=== PATIENT | female | born 1985 | race Caucasian/White ===

== ENCOUNTER 2020-09-29 19:57 | Emergency (ER) | payer BC, SELFPAY ==
--- NOTE | 2020-09-29 20:05 | ED.URI ---
HPI - URI/Sore Throat General Chief Complaint: Upper Respiratory Infection Stated Complaint: upper respiratory infection History of Present Illness HPI Narrative: The patient, previously mostly healthy non-smoker/nondrinker, presents with sore throat. Patient states she has about half week history of sore throat, low-grade temperature of 100, myalgias and scant nonproductive cough.. Symptoms are mild, worse upon swallowing, she took a home Covid antigen test which was negative, and she is a vaccinated nurse. No fever, hoarseness, trismus, loss of taste/smell, chest pain, S OB, earache, rash Related Data Home Medications Medication Instructions Recorded Confirmed meloxicam 15 mg PO BID 09/29/20 09/29/20 Allergies Allergy/AdvReac Type Severity Reaction Status Date / Time butorphanol Allergy Unknown Other Verified 09/29/20 20:08 Review of Systems Review of Systems: Narrative: General/Constitutional: No weight loss, REPORTS possible fever Eyes: N0: Redness,discharge Ears/Nose/Throat: No: Epistaxis,ear discharge Respiratory: Denies: Hemoptysis Gastrointestinal: No Vomiting, Bleeding-rectal Skin: No Lumps, eruption Neurologic: No Focal Weakness,Sz Hematologic: Denies: Petechiae/Purpura Psychiatric: No: Suicida ideationl All Other Systems: Reviewed and Negative PMFSH Social History Social History Gender identity (if verbalized by the patient): Female Comments At time of signature, agree with nursing past medical, surgical, social and family history. There is no relevant family history pertinent to the presenting complaint Exam Narrative: Exam Narrative: General Appearance: Well appearing, Well nourished, Conjunctiva clear Ears: Auditory canal normal, TM normal Nose: Rhinorrhea, Mucousal erythema Mouth/Throat: MM moist, Uvula midline, Pharyngeal erythema without exudate Supple, No adenopathy Respiratory: No respiratory distress, Breath sounds equal, Clear to auscultation Cardiovascular: RRR, No JVD Musculoskeletal: Non tender, Normal strength, Warm, Dry Course Vital Signs Vital signs: Vital Signs Temperature 97.5 F L 09/29/20 20:08 Pulse Rate 81 09/29/20 20:08 Respiratory Rate 18 09/29/20 20:08 Blood Pressure 135/81 09/29/20 20:08 Pulse Oximetry 100 09/29/20 20:08 Temperature 97.5 F L 09/29/20 20:10 Pulse Rate 81 09/29/20 20:10 Respiratory Rate 18 09/29/20 20:10 Blood Pressure 135/81 09/29/20 20:10 Pulse Oximetry 100 09/29/20 20:10 Discharge Plan Discharge Clinical Impression: Pharyngitis Patient Disposition: Home, Self-Care Condition: Stable Instructions: Antibiotic Form, Pharyngitis (ED) Prescriptions: New lidocaine HCl [Lidocaine Viscous] 2 % solution 5 ml MUCOUS MEM QID PRN (Reason: pain) Qty: 100 RF: 2 cefuroxime axetil 500 mg tablet 500 mg PO Q12H Qty: 14 RF: 0 No Action meloxicam 15 mg tablet 15 mg PO BID RF: 0 Follow-up/Referrals: Murtaza,Kristy Boles MD [Primary Care Provider] -
[2020-09-29 20:08] VITALS: BP 135/81; PULSE 81; RESP 18; TEMP 36.4; O2SAT 100
[2020-09-29 20:10] VITALS: BP 135/81; PULSE 81; RESP 18; TEMP 36.4; O2SAT 100
== END 2020-09-29 20:20 | disposition home or self-care (01) ==
PROVIDERS: Emergency Provider Emergency Medicine; PCP Family Medicine
DX: J02.9 Acute pharyngitis, unspecified (principal); K76.0 Fatty (change of) liver, not elsewhere classified
CPT/HCPCS: 87081; 87880; 99213; G0463

== ENCOUNTER 2021-02-01 11:13 | Emergency (ER) | payer BC, SELFPAY ==
[2021-02-01 11:24] VITALS: BP 124/74; PULSE 75; RESP 18; TEMP 36.7; O2SAT 100
--- NOTE | 2021-02-01 11:30 | ED.SKABFB ---
HPI - Skin/Abscess/Foreign Bdy General Chief complaint: Skin/Abscess/Foreign Body Stated complaint: Insect Bite Neck Time Seen by Provider: 02/01/21 11:28 Source: patient and RN notes reviewed Mode of arrival: ambulatory Limitations: no limitations History of Present Illness HPI narrative: 35-year-old female presents concern for rash. Reports on she was bit by an insect on her chest. Reports since then the rash area has gotten larger, itchier and is spreading Down her chest. She also reports today she started having generalized internal itching. She reports she is taken Zyrtec with no relief. Denies swollen lips, swollen tongue, trouble breathing. Denies nausea, vomiting, diarrhea. MD complaint: rash Related Data Home Medications Medication Instructions Recorded Confirmed propranolol 10 mg PO DAILY PRN 02/01/21 02/01/21 Allergies Allergy/AdvReac Type Severity Reaction Status Date / Time butorphanol Allergy Unknown Other Verified 02/01/21 11:29 Review of Systems Review of Systems: CONSTITUTIONAL: Denies malaise, chills, sweats, or fever. ENT: Denies polyps, swollen tongue CARDIOVASCULAR: Denies chest pain, palpitations, or edema. RESPIRATORY: Denies cough or dyspnea. SKIN: Reports itchy rash to the chest, reports generalized itching All systems reviewed & are unremarkable except as noted in HPI and below PMFSH Social History Social History Gender identity (if verbalized by the patient): Female Comments At time of signature, agree with nursing past medical, surgical, social and family history. There is no relevant family history pertinent to the presenting complaint Exam Narrative: GENERAL: Well-appearing, well-nourished, and in no acute distress. HEAD: Normocephalic, atraumatic. EYES: PERRLA, conjunctivae clear ENT: Mucous membranes moist. NECK: Supple. No lymphadenopathy CHEST: Clear to auscultation. No respiratory distress. HEART: Regular rate and rhythm. SKIN: Warm, dry. 2 cm x 4 cm papular rash noted to the chest with central scab, small trailing rash noted NEURO: Alert and oriented x3. PSYCH: Normal mood and affect Course Course Emergency Course: Patient is aware of diagnosis, understands and agrees to treatment plan. Anticipatory guidance given. Patient agrees to follow-up as directed and is aware of reasons to seek care at the emergency department. Portions of this record may have been created with voice recognition software Vital Signs Vital signs: Vital Signs Temperature 98.1 F 02/01/21 11:24 Pulse Rate 75 02/01/21 11:24 Respiratory Rate 18 02/01/21 11:24 Blood Pressure 124/74 02/01/21 11:24 Pulse Oximetry 100 02/01/21 11:24 Temperature 98.1 F 02/01/21 11:24 Pulse Rate 75 02/01/21 11:24 Respiratory Rate 18 02/01/21 11:24 Blood Pressure 124/74 02/01/21 11:24 Pulse Oximetry 100 02/01/21 11:24 Reviewed. MDM - Skin/Abscess/Foreign Bdy MDM Narrative Medical decision making narrative: Does not appear at this time to be erythema multiforme, bullous, SJS, TEN; no evidence at this time to suggest RMSF, endocarditis or Lyme disease; patient looks well, nontoxic and is tolerating oral intake; no neurologic signs or symptoms; no headache, photophobia or neck pain; afebrile; appropriate for initial outpatient treatment; discussed the importance of follow-up, patient agrees; question, viral exanthema, contact dermatitis, allergic dermatitis, eczema, urticaria bite, cellulitis, shingles. No soft palate or uvula edema, no tongue, lip edema or other mucosal involvement, no respiratory compromise, no stridor, no wheezing, no wheezing, no history of syncope, no hypotension, no nausea, vomiting, or diarrhea. Instructed patient to go to nearest ER immediately for any worsening symptoms including but not limited to: fever, spreading rash, pain, sore throat, headache, dizziness, chest pain, trouble breathing, or any symptoms concerning to the patient. Gadiel
== END 2021-02-01 11:42 | disposition home or self-care (01) ==
PROVIDERS: Emergency Provider Nurse Practitioner; PCP Nurse Practitioner Family
DX: R21 Rash and other nonspecific skin eruption (principal); I10 Essential (primary) hypertension; K76.0 Fatty (change of) liver, not elsewhere classified
CPT/HCPCS: 99213; G0463

== ENCOUNTER 2021-03-09 21:38 | Emergency (ER) | payer BC, SELFPAY ==
--- NOTE | ~2021-03-09 | CT_ITS ---
EXAMINATION: CT brain wo con EXAM DATE: 03/09/2021 23:25 INDICATION: Fall. TECHNIQUE: Spiral CT of the head was performed without contrast. Axial, coronal and sagittal images were reviewed. The dose-length product (DLP) for this examination was 605.33 mGy-cm. The exposure w as tailored according to patient size, and iterative reconstruction (ASIR) was used as additional dos e reduction technique. There is no prior study for comparison. FINDINGS: There is no acute intraparenchymal hemorrhage. No evidence of intraparenchymal brain mass lesion. No evidence of acute infarction. There is no mass effect or midline shift. The ventricles are normal in size. There are no extra-axial collections. There are no acute calvarial fractures. T he orbits are unremarkable. Soft tissue is unremarkable. The visualized sinuses and mastoid air jesus ls are well aerated. IMPRESSION: Unremarkable head CT examination. Reviewed, dictated and finalized at location A. TATION OPERATOR
[2021-03-09 22:06] VITALS: BP 137/95; PULSE 74; RESP 16; TEMP 36.5; O2SAT 100
[2021-03-09] MEDS: ONDANSETRON HCL ODT 4 MG TABLET PO (23:27)
--- NOTE | 2021-03-10 00:17 | ED.GENADULT ---
HPI - General Adult General Chief complaint: Wound/Laceration Stated complaint: fall lac to left ear Time Seen by Provider: 03/09/21 22:43 Source: patient Mode of arrival: ambulatory Limitations: no limitations History of Present Illness HPI narrative: 35-year-old with no major medical problems here with complaints of fall in the bathroom. Patient states that she slipped and fell hit her left ear. She now complains of nausea and headache. She denies loss of consciousness. Denies any other injuries. Related Data Home Medications Medication Instructions Recorded Confirmed propranolol 10 mg PO DAILY PRN 02/01/21 02/01/21 Allergies Allergy/AdvReac Type Severity Reaction Status Date / Time butorphanol Allergy Unknown Other Verified 03/09/21 22:20 Review of Systems Review of Systems: All systems reviewed & are unremarkable except as noted in HPI and below Constitutional: Constitutional: Reports no additional constitutional complaints Eyes: Eyes: Reports no additional eye complaints ENT: Reports as per HPI Cardiovascular: Cardiovascular: Reports no additional cardiovascular complaints Respiratory: Respiratory: Reports no additional respiratory complaints Gastrointestinal: Gastrointestinal: Reports no additional gastrointestinal complaints Musculoskeletal: Musculoskeletal: Reports no additional musculoskeletal complaints Integumentary/Breasts: Skin/Breast: Reports system reviewed and no additional complaints, except as docu Neurologic: Reports system reviewed and no additional complaints, except as documented PMFSH Social History Social History Gender identity (if verbalized by the patient): Female Exam Narrative: GENERAL: Well-appearing, well-nourished, and in no acute distress, anxious HEAD: Normocephalic, atraumatic. EYES: PERRLA and EOMI. ENT: Nares clear, no rhinorrhea or epistaxis. Mucous membranes moist. a small stellate lac on the pinna of the left ear. NECK: Supple. CHEST: Clear to auscultation. No respiratory distress. HEART: Regular rate and rhythm. No murmur heard. Normal peripheral pulses. EXTREMITIES: Normal range of motion. No edema. SKIN: Warm, dry, no rash. NEURO: No focal deficits. Alert and oriented x3. PSYCH: Normal mood and affect. Course Course Emergency Course: Patient feeling much better after Zofran. Informed her about her CAT scan. Vital Signs Vital signs: Vital Signs Temperature 36.5 C 03/09/21 22:06 Pulse Rate 74 03/09/21 22:06 Respiratory Rate 16 03/09/21 22:06 Blood Pressure 137/95 H 03/09/21 22:06 Pulse Oximetry 100 03/09/21 22:06 Temperature 36.5 C 03/09/21 22:06 Pulse Rate 74 03/09/21 22:06 Respiratory Rate 16 03/09/21 22:06 Blood Pressure 137/95 H 03/09/21 22:06 Pulse Oximetry 100 03/09/21 22:06 Procedures Laceration Laceration 1: Date: 03/10/21 Time: 00:21 Site: face (Left ear) Side (If applicable): left Description: stellate Depth: simple, single layer Local Anesthetic: none ====== Skin Level ====== Skin layer closed with: dermabond ====== Subcutaneous Layer ====== ====== Muscle Layer ====== ====== Tendon Layer ====== Medical Decision Making Vital Signs Vital Signs: Vital Signs Temperature 36.5 C 03/09/21 22:06 Pulse Rate 74 03/09/21 22:06 Respiratory Rate 16 03/09/21 22:06 Blood Pressure 137/95 H 03/09/21 22:06 Pulse Oximetry 100 03/09/21 22:06 Temperature 36.5 C 03/09/21 22:06 Pulse Rate 74 03/09/21 22:06 Respiratory Rate 16 03/09/21 22:06 Blood Pressure 137/95 H 03/09/21 22:06 Pulse Oximetry 100 03/09/21 22:06 Imaging Data Radiologist's impression: ITS Impressions Head CT 03/09/21 23:40 IMPRESSION: Unremarkable head CT examination. Discharge Plan Discharge Clinical Impression: Minor head injury Qualifiers:
[2021-03-10 00:54] VITALS: BP 127/78; PULSE 81; RESP 16; O2SAT 98
== END 2021-03-10 00:55 | disposition home or self-care (01) ==
PROVIDERS: Emergency Provider Family Medicine; PCP Nurse Practitioner Family
DX: S01.312A Laceration without foreign body of left ear, initial encounter (principal); W01.198A Fall on same level from slipping, tripping and stumbling with subsequent striking against other object, initial encounter
CPT/HCPCS: 12011; 70450; 99283; A9270

== ENCOUNTER → 2021-07-19 15:26 | Outpatient (CLI) | payer BC, SELFPAY ==
--- NOTE | ~2021-07-19 | US_ITS ---
EXAMINATION: US pelvic complete w TV DATE: 07/19/2021 15:56 INDICATION: Right lower quadrant pain TECHNIQUE: Multiple transabdominal and endovaginal sonographic images of the pelvis were obtained. COMPARISON: None. FINDINGS: The uterus measures 8.7 x 3.8 x 5.3 cm. The endometrial complex measures 6 mm. The right ov иван measures 2.8 x 1.9 x 2 cm. The left ovary measures 3.2 x 3.3 x 2.4 cm. There is normal vascular f low in the ovaries. There is no free fluid in the pelvis. IMPRESSION: 1. No sonographic correlate for the patient's symptoms. Reviewed, dictated and finalized at location B.
== END ==
PROVIDERS: Visit Provider Obstetrics & Gynecology
DX: R10.31 Right lower quadrant pain (principal)
CPT/HCPCS: 76830; 76856

== ENCOUNTER → 2021-08-20 08:26 | Outpatient (CLI) | payer BC, SELFPAY ==
--- NOTE | ~2021-08-20 | US_ITS ---
EXAMINATION: US right upper quadrant DATE: 08/20/2021 08:46 INDICATION: Right upper quadrant pain. TECHNIQUE: Multiple grayscale and Doppler ultrasound images of the abdomen were obtained. COMPARISON: 09/20/2017. FINDINGS: Increased echogenicity of the liver, otherwise normal. No surface nodularity. Normal hepato petal flow in the main portal vein. The gallbladder is normal with no abnormal wall thickening, peric holecystic fluid or stones. The normal common bile duct measures 0.3 cm. There was no sonographic Mur phy sign. The visualized portions of the inferior vena cava are normal. IMPRESSION: 1. Echogenic liver, frequently seen with steatosis but can also occur with hepatitis and fibrosis. Reviewed, dictated and finalized at location K. IMPRESSION: 1. Echogenic liver, frequently seen with steatosis but can also occur with hepa titis and fibrosis.
== END ==
PROVIDERS: PCP Nurse Practitioner Family; Visit Provider Nurse Practitioner Family
DX: R10.11 Right upper quadrant pain (principal); K76.0 Fatty (change of) liver, not elsewhere classified
CPT/HCPCS: 76705

== ENCOUNTER 2023-07-16 11:47 | Emergency (ER) | payer BC, SELFPAY ==
--- NOTE | 2023-07-16 11:48 | ED.URI ---
HPI - URI/Sore Throat General Chief Complaint: Upper Respiratory Infection Stated Complaint: Bodyaches,Cough,Earache,Headache,Short of Breath Time Seen by Provider: 07/16/23 11:48 Source: patient Mode of arrival: ambulatory Limitations: no limitations History of Present Illness HPI Narrative: Mirna is a 37-year-old female patient presenting to the clinic today with complaints of body aches, sore throat, cough, headache, earache, and chest congestion. She reports symptoms started last week. She is coughing up some yellow phlegm. Denies any chest pain. Reports that she does have some shortness of breath however her SpO2 is 100% on room air and she is able to speak in full sentences. MD elicited complaint: fever, cough, sore throat, rhinorrhea, nasal congestion and sinus pain Related Data Home Medications Medication Instructions Recorded Confirmed No Home Medications 07/16/23 07/16/23 Allergies Allergy/AdvReac Type Severity Reaction Status Date / Time butorphanol AdvReac Severe Hallucinati Verified 07/16/23 11:56 ng pseudoephedrine AdvReac Intermediate Palpitation Verified 07/16/23 11:56 s Review of Systems Review of Systems: Pertinent positives per HPI. Patient denies any fever, chills, rash, headache, visual changes, dizziness, chest pain, palpitations, nausea, vomiting, diarrhea, constipation, abdominal pain, or any urinary issues. [facility] Past Medical History Medical History Asthma Encounter for IUD insertion 06/22/14 Mirena insertion Encounter for IUD removal 02/09/15 Mirena removal Fatty liver History of frequent headaches Migraines Pain, abdominal, RLQ Screening mammogram for breast cancer (10/01/18) right breast US -recommended us guided bx referred to [facility] Family History Family History Father Hypertension Diabetes mellitus Grandparent Hypertension maternal grandmother Osteoporosis maternal grandmother Heart disease maternal grandmother Mother Hypertension Social History Social History Smoking status: Never smoker Alcohol intake: never Substance use: never Substance use type: does not use Living arrangements: other Additional living arrangements comments: Occupation/Education: occupation Additional occupation/education comments: nurse Gender identity (if verbalized by the patient): Female Sexual Orientation (if Verbalized by the Patient): Straight or Heterosexual Comments At the time of my signature, I reviewed and agree with the nursing past medical, surgical, social, and family history. There is no relevant family history pertinent to the patient complaint. Exam Narrative: General: Well-developed, well nourished, in no apparent distress Head: Normocephalic, atraumatic Eyes: Pupils equally round and reactive to light bilaterally, EOM intact, sclera and conjunctive clear, no discharge, lids normal Ears: TMs intact and clear, ear canals clear, no drainage, grossly hearing normal. Nose: Nares patent, no discharge, no inflammation, no sinus tenderness. Mouth: Oral pharynx without lesions or masses, good dentition, MMM. Neck: Supple, trachea midline, no enlargement of anterior or posterior cervical nodes, no thyroid masses or goiter palpable. Cardio: Regular rate and rhythm, s1 and s2 normal, no murmur appreciated. Resp: Clear to auscultation bilaterally, no rhonchi, rales, wheezing or rubs Course Course Emergency Course: Portions of this record may have been created with voice recognition software. Level of Care: Express Care Visit Vital Signs Vital signs: Vital signs reviewed MDM - URI/Sore Throat MDM Narrative Medical decision making narrative: At the time of visit patient is resting comfortably on the exam table. Patient
[2023-07-16 11:56] VITALS: BP 145/85; PULSE 77; RESP 18; TEMP 36.2; O2SAT 100
== END 2023-07-16 12:22 | disposition home or self-care (01) ==
PROVIDERS: Emergency Provider Nurse Practitioner Family; PCP Nurse Practitioner Family
DX: J06.9 Acute upper respiratory infection, unspecified (principal); J02.9 Acute pharyngitis, unspecified; Z20.822 Contact with and (suspected) exposure to COVID-19; J45.909 Unspecified asthma, uncomplicated; K76.0 Fatty (change of) liver, not elsewhere classified
CPT/HCPCS: 87081; 87426; 87804; 87880; 99213; G0463

== ENCOUNTER 2024-04-22 13:58 | Emergency (ER) | payer BC, SELFPAY ==
[2024-04-22 14:23] VITALS: BP 130/89; PULSE 86; RESP 18; TEMP 36.2; O2SAT 100
[2024-04-22 14:48] LABS: EDUAAPPEAR Clear; EDUABILI Negative (Negative); EDUABLOOD Negative (Negative); EDUACOLOR1 Yellow; EDUAGLUCOSE Negative (Negative); EDUAKETONE Negative (Negative); EDUALEUKO Negative (Negative); EDUANITRATE Negative (Negative); EDUAPH 5.5; EDUAPROTEIN Negative (Negative)
--- NOTE | 2024-04-22 15:19 | ED_ITS ---
HPI - Female Genitourinary General Chief complaint: Urogenital-Female Stated complaint: Possible UTI Time Seen by Provider: 04/22/24 14:35 Source: patient Mode of arrival: ambulatory Limitations: no limitations History of Present Illness HPI Narrative: 38-year-old female presents with complaint of urinary frequency, urgency, dysuria for the past 2-3 days. Reports back is aching. Reports decrease in urine output starting today. Feels like her urethra is spasming . Increased water intake and drinking cranberry juice. Afebrile. Denies nausea vomiting. Reports history of yeast infections and is not having similar symptoms. All systems reviewed and negative except as noted above. Related Data Home Medications ?Medication ?Instructions ?Recorded ?Confirmed ?Last Taken ?Type sertraline 50 mg tablet 50 mg PO DAILY 04/08/24 Unknown History Allergies Allergy/AdvReac Type Severity Reaction Status Date / Time butorphanol AdvReac Severe Hallucinati Verified 04/22/24 14:26 ng pseudoephedrine AdvReac Intermediate Palpitation Verified 04/22/24 14:26 s Review of Systems Review of Systems: CONSTITUTIONAL: Denies fever, chills, or sweats. EYES: Denies visual changes, redness, or discharge. ENT: Denies rhinorrhea, congestion, sore throat, or otalgia. CARDIOVASCULAR: Denies chest pain, palpitations, or edema. RESPIRATORY: Denies cough or dyspnea. GASTROINTESTINAL: Denies abdominal pain, nausea, vomiting, or diarrhea. GENITOURINARY: Reports dysuria, frequency, urgency. Denies hematuria. SKIN: Denies rash or itching. MUSCULOSKELETAL: Denies back pain, joint pain, or myalgia. NEUROLOGIC: Denies headache, numbness, or weakness. PSYCHIATRIC: Denies anxiety or depression. All other systems reviewed are negative, except as documented in HPI. [facility] Past Medical History Medical History (Updated 04/22/24 @ 15:05 by Tasha Sampson NP) Hypersomnia BMI 27.0-27.9,adult Arthralgia of multiple joints Depression Anxiety Swelling, mass, or lump in head and neck Encounter for IUD removal 02/09/15 Mirena removal Encounter for IUD insertion 06/22/14 Mirena insertion Migraines Fatty liver History of frequent headaches Asthma Screening mammogram for breast cancer (10/01/18) right breast US -recommended us guided bx referred to [facility] Pain, abdominal, RLQ Surgical History Surgical History History of liver biopsy (~03/2023) fatty liver disease Family History Family History Father Hypertension Diabetes mellitus Grandparent Hypertension maternal grandmother Osteoporosis maternal grandmother Heart disease maternal grandmother Mother Hypertension Thyroid disease Social History Social History Smoking status: Never smoker Second hand tobacco smoke exposure: No Alcohol intake: current Drinks per week: 1 Substance use: never Substance use type: does not use Do You Feel Safe in your Home?: Yes Lack of Transportation: No Lack of Food: Never True Current Housing: I Have Housing Concerned About Future Housing: No Difficulty Paying Gas/Electric Bills: No Difficulty Paying for Meds: No Currently Unemployed: No Education: Bachelor's Degree Difficulty w/ Childcare or Family Care: No Living arrangements: other Additional living arrangements comments: Occupation/Education: occupation Additional occupation/education comments: nurse Gender identity (if verbalized by the patient): Female Sexual Orientation (if Verbalized by the Patient): Straight or Heterosexual Comments At time of signature, agree with nursing past medical, surgical, social and family history. There is no relevant family history pertinent to the presenting complaint. Exam Narrative: GENERAL: This is a well-nourished, well-developed patient, in no apparent distress. HEAD: normocephalic, atraumatic. EYES: PERRL. Sclera clear/white. Vision is grossly intact. EARS: External ears normal NOSE: External nose normal NECK: Neck supple, non-tender without lymphadenopathy, masses or thyromegaly. CARDIOVASCULAR: Regular rate and rhythm without murmurs, gallops, or rubs. RESPIRATORY: Clear to auscultation. Breath sounds equal bilaterally. No wheezes, rales, or rhonchi. SKIN: warm, Dry, intact with no suspicious lesions or rash, good texture and turgor. NEURO: awake, alert, and oriented to person, place and time. There were no obvious focal neurologic abnormalities. EXTREMITIES: No joint tenderness, effusion, or edema noted. Course Course Level of Care: Express Care Visit Vital Signs Vital signs: Vital Signs Temperature 36.2 C L 04/22/24 14:23 Pulse Rate 86 04/22/24 14:23 Respiratory Rate 18 04/22/24 14:23 Blood Pressure 130/89 04/22/24 14:23 Pulse Oximetry 100 04/22/24 14:23 Oxygen Delivery Room Air 04/22/24 14:23 Temperature 36.2 C L 04/22/24 14:23 Pulse Rate 86 04/22/24 14:23 Respiratory Rate 18 04/22/24 14:23 Blood Pressure 130/89 04/22/24 14:23 Pulse Oximetry 100 04/22/24 14:23 Oxygen Delivery Room Air 04/22/24 14:23 reviewed MDM - Female Genitourinary MDM Narrative Medical decision making narrative: Patient's urinalysis normal. Urine culture ordered due to patient's symptoms were and will prescribe patient antibiotic to treat urinary tract infection due to patient's symptoms. Recommend she follow up her primary care physician if symptoms are not improving. Recommend she go to the ER for any worsening of symptoms. Patient well-appearing, nontoxic. Patient is aware of diagnosis, understands and agrees to treatment plan. Anticipatory guidance given. Patient agrees to follow-up as directed and is aware of reasons to seek care at the emergency department. Portions of this record may have been created with voice recognition software Differential Diagnosis Differential diagnosis: Likely urinary tract infection Lab Data Labs: Lab Results 04/22/24 Range/Units 14:45 POC Urine Color Yellow POC Urine Clarity Clear POC Urine pH 5.5 POC Ur Specif [place] 1.020 POC Urine Protein Negative (Negative) POC Ur Glucose (UA) Negative (Negative) POC Urine Ketones Negative (Negative) POC Urine Blood Negative (Negative) POC Urine Nitrite Negative (Negative) POC Urine Bilirubin Negative (Negative) POC Urine Urobilinogen 1.0 POC U Leukocyte Esteras Negative (Negative) Discharge Plan Discharge Clinical Impression: Urinary tract infection Qualifiers: Urinary tract infection type: site unspecified Hematuria presence: without hematuria Qualified Code(s): N39.0 - Urinary tract infection, site not specified Patient Disposition: Home, Self-Care Condition: Stable Instructions: Antibiotic Form, Urinary Tract Infection in Women (ED) Additional Instructions: take antibiotic as prescribed. Take [id number] azo as needed for urinary symptoms. Drink at least 64 oz of water a day. Follow-up with your primary care physician if symptoms are not improving. If you have severe pain, fever, vomiting go to the ER. Patient Language: Ukrainian Prescriptions: New amoxicillin-pot clavulanate [Augmentin] 500-125 mg tablet 1 tablet PO BID 5 Days Qty: 10 0RF No Action rizatriptan 10 mg tablet,disintegrating See Rx Instructions PO .COMPLEX Qty: 12 2RF Rx Instructions: take 1 tab at onset of headache; if no relief may repeat 1 tab after at least 2 hrs bupropion HCl [Wellbutrin XL] 150 mg tablet extended release 24 hr 150 mg PO QAM Qty: 30 11RF clobetasol 0.05 % ointment 1 applic topical BID Qty: 30 0RF Rx Instructions: apply twice daily for 4 weeks semaglutide (weight loss) 0.5 mg/0.5 mL pen injector 0.5 mg subcut WEEKLY Qty: 2 2RF sertraline 50 mg tablet 50 mg PO DAILY Follow-up/Referrals: Clarissa Lund NP [Primary Care Provider] - Time of Disposition: 15:06
== END 2024-04-22 15:10 | disposition home or self-care (01) ==
PROVIDERS: Emergency Provider Nurse Practitioner Family; PCP Nurse Practitioner Family
DX: N39.0 Urinary tract infection, site not specified (principal); F41.8 Other specified anxiety disorders
CPT/HCPCS: 81003; 87086; 99213; G0463

== ENCOUNTER 2024-06-16 16:13 | Emergency (ER) | payer BC, SELFPAY ==
[2024-06-16 16:44] VITALS: BP 132/73; PULSE 88; RESP 20; TEMP 36.4; O2SAT 100
--- NOTE | 2024-06-16 17:04 | ED_ITS ---
HPI - URI/Sore Throat General Chief Complaint: Upper Respiratory Infection Stated Complaint: body aches and chills Time Seen by Provider: 06/16/24 17:05 Source: patient and RN notes reviewed Mode of arrival: ambulatory Limitations: no limitations History of Present Illness HPI Narrative: 38-year-old female presented for complaint of nasal congestion, cough, fatigue and body aches. Onset 3 weeks. She has been taking Augmentin for 4 days. She states over last few days symptoms are not getting better. Also reports a red itchy rash to abdomen and buttocks. First noticed a few days ago. 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 Denies lip, tongue, or throat swelling, shortness of breath or wheezing. Denies changes to soap, detergent, lotion, or any other exposures. No one else in the house or any contacts with similar symptoms. MD elicited complaint: cough Related Data Allergies Allergy/AdvReac Type Severity Reaction Status Date / Time butorphanol AdvReac Severe Hallucinati Verified 06/16/24 16:49 ng pseudoephedrine AdvReac Intermediate Palpitation Verified 06/16/24 16:49 s Review of Systems Review of Systems: per HPI [facility] Past Medical History Medical History (Updated 06/16/24 @ 17:47 by Josefina Feng, JU) Hypersomnia BMI 27.0-27.9,adult Arthralgia of multiple joints Depression Anxiety Swelling, mass, or lump in head and neck Encounter for IUD removal 02/09/15 Mirena removal Encounter for IUD insertion 06/22/14 Mirena insertion Migraines Fatty liver History of frequent headaches Asthma Screening mammogram for breast cancer (10/01/18) right breast US -recommended us guided bx referred to [place] Pain, abdominal, RLQ Surgical History Surgical History History of liver biopsy (~03/2023) fatty liver disease Family History Family History Father Hypertension Diabetes mellitus Grandparent Hypertension maternal grandmother Osteoporosis maternal grandmother Heart disease maternal grandmother Mother Hypertension Thyroid disease Social History Social History Smoking status: Never smoker Second hand tobacco smoke exposure: No Alcohol intake: current Drinks per week: 1 Substance use: never Substance use type: does not use Do You Feel Safe in your Home?: Yes Lack of Transportation: No Lack of Food: Never True Current Housing: I Have Housing Concerned About Future Housing: No Difficulty Paying Gas/Electric Bills: No Difficulty Paying for Meds: No Currently Unemployed: No Education: Bachelor's Degree Difficulty w/ Childcare or Family Care: No Living arrangements: other Additional living arrangements comments: Occupation/Education: occupation Additional occupation/education comments: nurse Gender identity (if verbalized by the patient): Female Sexual Orientation (if Verbalized by the Patient): Straight or Heterosexual Exam Narrative: GENERAL: mildly ill-appearing, nontoxic no acute distress. EYES: PERRLA, conjunctivae clear ENT: Mucous membranes moist. TM pearly bowman with dull light reflex bilaterally; no tragal tenderness. Oropharynx not erythematous without lesions or exudate, no drooling, no hoarseness, no trismus, uvula midline. No tripod positioning, muffled voice, soft palate or pharyngeal wall bulging NECK: Supple. No lymphadenopathy CHEST: Clear to auscultation, breath sounds equal. HEART: Regular rate and rhythm. SKIN: Warm, dry, few scattered erythematous papules noted to her waist and buttock. NEURO: Alert and oriented x3. PSYCH: Normal mood and affect Course Course Emergency Course: Patient is aware of diagnosis, understands and agrees to treatment plan. Anticipatory guidance given. Patient agrees to follow-up as directed and is aware of reasons to seek care at the emergency department. Portions of this record may have been created with voice recognition software Level of Care: Express Care Visit Vital Signs Vital signs: Vital Signs Temperature 97.6 F 06/16/24 16:44 Pulse Rate 88 06/16/24 16:44 Respiratory Rate 20 06/16/24 16:44 Blood Pressure 132/73 06/16/24 16:44 Pulse Oximetry 100 06/16/24 16:44 Oxygen Delivery Room Air 06/16/24 16:44 Temperature 97.6 F 06/16/24 16:44 Pulse Rate 88 06/16/24 16:44 Respiratory Rate 20 06/16/24 16:44 Blood Pressure 132/73 06/16/24 16:44 Pulse Oximetry 100 06/16/24 16:44 Oxygen Delivery Room Air 06/16/24 16:44 reviewed MDM - URI/Sore Throat MDM Narrative Medical decision making narrative: POS covid Discussed physical exam findings. Requesting diflucan while taking Augmentin. Advised supportive measures and signs/symptoms to go to the ER. Pt is appropriate for outpt treatment and f/u. Differential Diagnosis Differential diagnosis: Likely upper respiratory infection, otitis media, sinusitis, viral infection, bronchitis, influenza and pharyngitis Lab Data Labs: Lab Results 06/16/24 Range/Units 17:24 POC Influenza A Ag Negative (Negative) POC Influenza B Ag Negative (Negative) POC SARS CoV-2 Ag Positive (Negative) Discharge Plan Discharge Clinical Impression: COVID-19 Patient Disposition: Home, Self-Care Condition: Stable Instructions: COVID-19 (Coronavirus Disease 2019) (ED) Additional Instructions: Your rapid COVID test was positive today. The following updated recommendations have been made by the CDC and local Health Departments, regarding COVID-19: - When people get sick with a respiratory virus, they stay home and away from [facility]. - Return to normal activities when, for at least 24 hours, symptoms are improving overall, and if a fever was present, it has been gone without use of a fever-reducing medication. - Once people resume normal activities, they are encouraged to take additional prevention strategies for the next 5 days to curb disease spread, such as taking more steps for screen cleaner air, enhancing hygiene practices, wearing a well-fitting mask, keeping a distance from others, and/or getting tested for respiratory viruses. - Enhanced precautions are especially important to protect those most at risk for severe illness, including those over 65 and people with weakened immune systems. Rest, stay hydrated. Tylenol and ibuprofen every 8 hours as needed Flonase/nasal spray, Zyrtec, cough syrup cold/flu medications for symptoms as needed Rash: Take steroids and antihistamine as directed. Cool compresses to the sites of itching, avoid hot water. Avoid scratching to reduce the risk of infection Follow up with your primary care provider as needed in 1 week Go to the ER for worsening symptoms or concerns (lip, tongue, throat swelling/itching, trouble breathing etc) Patient Language: Turkish Prescriptions: New fluconazole 150 mg tablet 150 mg PO DAILY Qty: 2 0RF prednisone 20 mg tablet 40 mg PO DAILY 4 Days Qty: 8 0RF No Action rizatriptan 10 mg tablet,disintegrating See Rx Instructions PO .COMPLEX Qty: 12 2RF Rx Instructions: take 1 tab at onset of headache; if no relief may repeat 1 tab after at least 2 hrs bupropion HCl [Wellbutrin XL] 150 mg tablet extended release 24 hr 150 mg PO QAM Qty: 30 11RF clobetasol 0.05 % ointment 1 applic topical BID Qty: 30 0RF Rx Instructions: apply twice daily for 4 weeks semaglutide (weight loss) 0.5 mg/0.5 mL pen injector 0.5 mg subcut WEEKLY Qty: 2 2RF sertraline 50 mg tablet 50 mg PO DAILY Qty: 30 11RF amoxicillin-pot clavulanate 875-125 mg tablet 1 tablet PO Q12H Qty: 20 0RF Follow-up/Referrals: Clarissa Lund NP [Primary Care Provider] - Time of Disposition: 17:51
[2024-06-16 17:41] LABS: EDCOVIDSCREEN Positive (Negative); EDINFLUASCREEN Negative (Negative); EDINFLUBSCREEN Negative (Negative)
--- OUTSIDE RECORDS SUMMARY | 2024-06-16 18:25 | XMS_ITS | Patient Health Summary ---
Author Organization [facility] Address [address] [place] [address] Care Team Providers Care Graining Press Operator Name Role Phone Clarissa Lund Elvi DODD-AIR EXPORT LOGISTICS MANAGER Primary Care Provider Note from [facility],non-owned Affiliates and Associated Physician Practices is amultiple site organization consisting of ambulatory clinics and hospital sitesin [place], [place], [place] and [place]. This disclosure is being madepursuant to the Care Everywhere program and may not contain all information available regarding this patient. Last updated 18.[facility] Allergies * Butorphanol(OPTION TRADER Dysfunction) Medications * Be aware that medications may not be up to date on this document. Alwaysverify current medications with the patient. 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 8 Chronic diarrhea 12/03/2017 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, previously known as NAFLD) 12/03/2017 Migraine 12/03/2017 Social History Tobacco Use Types Packs/Day Years Used Date Smoking Tobacco: Never Smokeless Tobacco: Never Tobacco Cessation:Counseling Given: Not Answered Alcohol Use Standard Drinks/Week Comments Yes 1 (1 standard drink = 0.6 oz pur e alcohol) very rare PHQ-2 Answer Date Recorded Patient Health Questionnaire-2 Score 0 03/20/2024 Sex and Gender Information Value Date Recorded Sex Assigned at Not on file Gender Identity Not on file Sexual Orientation Not on file Last Filed Vital Signs Vital Sign Reading Time Taken Comments Blood Pressure 146/94 03/20/2024 1:07 PM COLLEGE ADMINISTRATOR Pulse 77 03/20/2024 1:07 PM COLLEGE ADMINISTRATOR Temperature 36.7 C (98.1 F) 03/20/2024 1:07 PM COLLEGE ADMINISTRATOR Respiratory Rate 17 11/20/2023 9:27 AM CDT Oxygen Saturation 98% 03/20/2024 1:07 PM COLLEGE ADMINISTRATOR Inhaled Oxygen Concentration - - Weight 77.1 kg (170 lb) 03/20/2024 1:07 PM COLLEGE ADMINISTRATOR Height 167.6 cm (5' 6 ) 03/20/2024 1:07 PM COLLEGE ADMINISTRATOR Body Mass Index 27.44 03/20/2024 1:07 PM COLLEGE ADMINISTRATOR Procedures * CYCLIC CITRULLINATED PEPTIDE(CCP) AB IGG(Performed 03/20/2024) Performed for Polyarthralgia * XR WRIST RIGHT 3VW OR MORE(Performed 03/20/2024) Performed for Polyarthralgia * XR WRIST LEFT 3VW OR MORE(Performed 03/20/2024) Performed for Polyarthralgia * XR HAND LEFT 3VW OR MORE(Performed 03/20/2024) Performed for Polyarthralgia * XR HAND RIGHT 3VW OR MORE(Performed 03/20/2024) Performed for Polyarthralgia * COMPLETE PFT W/WO BRONCHODILATOR(Performed 11/20/2023) Performed for Kcjxw-9-eigxdazitfm deficiency carrier, Pulmonary nodule * NEEDLE BIOPSY, LIVER(Performed 04/26/2023) * WA NEEDLE BIOPSY LIVER(Performed 04/26/2023) Performed for Skxsd-4-kuamzdcvgxhktjpl deficiency, Elevated LFTs * PATHOLOGY TISSUE(Performed 04/26/2023) Performed for Xesnc-6-cufjofpbthglspvk deficiency, Elevated LFTs * HCG URINE QUALITATIVE - POCT (IP) INTERFACED(Performed 04/26/2023) * HCG URINE QUAL POCT NOTIFICATION(Performed 04/26/2023) Performed for Preop examination * PT-INR [facility](Performed 04/26/2023) Performed for Dcciw-5-arydmdirlqs deficiency carrier, NAFLD (nonalcoholic fatty liver disease) * XR CHEST 2VW(Performed 03/13/2023) Performed for Ehyom-6-rhacjicjxor deficiency carrier, Pulmonary nodule * IGA BLOOD(Performed 03/01/2023) Performed for Oeuff-0-pwxqktbyypr deficiency carrier * IGM BLOOD(Performed 03/01/2023) Performed for Cluik-7-ropcwkohlrg deficiency carrier * IGG BLOOD(Performed 03/01/2023) Performed for Rvgwq-8-nnuctyvqnkp deficiency carrier * IRON + TRANSFERRIN PANEL(Performed 03/01/2023) Performed for Elevated liver enzymes * MITOCHONDRIAL ANTIBODY SCREEN(Performed 03/01/2023) Performed for Elevated liver enzymes * SMOOTH MUSCLE ANTIBODY W REFLEX TITER(Performed 03/01/2023) Performed for Elevated liver enzymes * GGT(Performed 03/01/2023) Performed for Elevated liver enzymes * FERRITIN(Performed 03/01/2023) Performed for Elevated liver enzymes * ERROL BLOOD SCREEN W/REFLEX TITER(Performed 03/01/2023) Performed for Elevated liver enzymes * VPHLN-7-FYVIGUUZQUZ BLOOD(Performed 03/01/2023) Performed for Elevated liver enzymes * COMPREHENSIVE METABOLIC PANEL(Performed 03/01/2023) Performed for Elevated liver enzymes * CBC W AUTO DIFFERENTIAL(Performed 03/01/2023) Performed for Elevated liver enzymes * WA LIVER ELASTOGRAPHY(Performed 03/01/2023) Performed for Elevated liver enzymes * LAB MISC TEST(Performed 12/13/2017) * PROC FIBROSCAN(Performed 12/07/2017) Performed for NAFLD (nonalcoholic fatty liver disease) * HEPATITIS A IGM ANTIBODY(Performed 12/05/2017) * FERRITIN(Performed 12/05/2017) * ERROL W REFLEX DS-DNA+ONI+SSJ(Performed 12/05/2017) * HEPATITIS B SURFACE ANTIBODY(Performed 12/05/2017) * IRON + TIBC PANEL(Performed 12/05/2017) * SMOOTH MUSCLE ANTIBODY(Performed 12/05/2017) Performed for NAFLD (nonalcoholic fatty liver disease), Elevated liver enzymes * HEPATITIS C ANTIBODY(Performed 12/05/2017) Performed for NAFLD (nonalcoholic fatty liver disease), Elevated liver enzymes * HEPATITIS B CORE ANTIBODY TOTAL(Performed 12/05/2017) Performed for NAFLD (nonalcoholic fatty liver disease), Elevated liver enzymes * HEPATITIS B SURFACE ANTIGEN W RFLX CONFIRMATION(Performed 12/05/2017) Performed for NAFLD (nonalcoholic fatty liver disease), Elevated liver enzymes * MITOCHONDRIAL ANTIBODY SCREEN(Performed 12/05/2017) Performed for NAFLD (nonalcoholic fatty liver disease), Elevated liver enzymes * CERULOPLASMIN(Performed 12/05/2017) Performed for NAFLD (nonalcoholic fatty liver disease), Elevated liver enzymes * HKCZS-1-RFEAIZCKQBH BLOOD(Performed 12/05/2017) Performed for NAFLD (nonalcoholic fatty liver disease), Elevated liver enzymes * HEMOCHROMATOSIS MUTATION PANEL(Performed 12/05/2017) Performed for NAFLD (nonalcoholic fatty liver disease), Elevated liver enzymes * BILIRUBIN DIRECT(Performed 12/05/2017) Performed for NAFLD (nonalcoholic fatty liver disease), Elevated liver enzymes * PT-INR(Performed 12/05/2017) Performed for NAFLD (nonalcoholic fatty liver disease), Elevated liver enzymes * COMPREHENSIVE METABOLIC PANEL(Performed 12/05/2017) Performed for NAFLD (nonalcoholic fatty liver disease), Elevated liver enzymes * CBC W AUTO DIFFERENTIAL(Performed 12/05/2017) Performed for NAFLD (nonalcoholic fatty liver disease), Elevated liver enzymes Results * CYCLIC CITRULLINATED PEPTIDE(CCP) AB IGG (03/20/2024 1:57 PM COLLEGE ADMINISTRATOR) CCP Antibody IgG 0.8 <5.0 U/mL 03/20/2024 3:02 PM COLLEGE ADMINISTRATOR [facility] Blood BLOOD SPECIMEN / Unknown Lab Venipuncture / Unknown 03/20/2024 1:57 PM COLLEGE ADMINISTRATOR 03/20/2024 2:09 PM COLLEGE ADMINISTRATOR Shanti Lubin MD LAB - CHEMISTRY [facility] [place] [address] [address], [facility] [phone] * XR Hand Right 3Vw or More (03/20/2024 1:53 PM COLLEGE ADMINISTRATOR) Anatomical Region Laterality Modality Wrist / Hand Digital Radiogra phy 03/20/2024 2:55 PM COLLEGE ADMINISTRATOR Impressions 03/20/2024 2:57 PM COLLEGE ADMINISTRATOR IMPRESSION: Normal-appearing 3 view study of the right hand. > Interpreting Provider: Simon Parkinson MD on 03/20/2024 2:57 PM Narrative 03/20/2024 2:57 PM COLLEGE ADMINISTRATOR PROCEDURE: XR HAND RIGHT 3VW OR MORE DATE/TIME OF EXAM: 03/20/2024 1:54 PM CLINICAL INFORMATION: None relevant/not provided if blank. Indication: M25.50: Polyarthralgia Additional History: COMPARISON: None. FINDINGS: PA, AP and lateral views of the right hand were obtained and shows no evidence of fracture, dislocation, bone or joint space destructive process nor significant joint space narrowing or widening. Osseous structures are normally aligned. No erosive changes identified. Bony mineralization appeared normal. No abnormal soft tissue calcifications. Procedure Note Simon Parkinson MD - 03/20/2024 PROCEDURE: XR HAND RIGHT 3VW OR MORE DATE/TIME OF EXAM: 03/20/2024 1:54 PM CLINICAL INFORMATION: None relevant/not provided if blank. Indication: M25.50: Polyarthralgia Additional History: COMPARISON: None. FINDINGS: PA, AP and lateral views of the right hand were obtained and shows no evidence of fracture, dislocation, bone or joint space destructiveprocess nor significant joint space narrowing or widening. Osseous structuresare normally aligned. No erosive changes identified. Bony mineralization appeared normal. No abnormal soft tissue calcifications. IMPRESSION: Normal-appearing 3 view study of the right hand. > Interpreting Provider: Simon Parkinson MD on 03/20/2024 2:57 PM Shanti Lubin MD DIAGNOSTIC IMAGING O RDERABLES * XR Hand Left 3Vw or More (03/20/2024 1:53 PM COLLEGE ADMINISTRATOR) Anatomical Region Laterality Modality Wrist / Hand Digital Radiogra phy 03/20/2024 2:58 PM COLLEGE ADMINISTRATOR Impressions 03/20/2024 3:00 PM COLLEGE ADMINISTRATOR IMPRESSION: Slight deformity of the larissa of the third and fourth distal phalanges with considerations for old healed traumatic fractures versus congenital etiology. > Interpreting Provider: Simon Parkinson MD on 03/20/2024 3:00 PM Narrative 03/20/2024 3:00 PM COLLEGE ADMINISTRATOR PROCEDURE: XR HAND LEFT 3VW OR MORE DATE/TIME OF EXAM: 03/20/2024 1:54 PM CLINICAL INFORMATION: None relevant/not provided if blank. Indication: M25.50: Polyarthralgia Additional History: COMPARISON: None. FINDINGS: PA, lateral, and AP views of the left hand were obtained and demonstrates subtle deformity with small clefts of the distal larissa of the third and fourth distal phalanges. This may simply be congenital in etiology although old healed fractures cannot be excluded. Otherwise there is no evidence of acute fracture, dislocation, osseous malalignment, joint space narrowing or widening, nor erosive changes. Procedure Note Simon Parkinson MD - 03/20/2024 PROCEDURE: XR HAND LEFT 3VW OR MORE DATE/TIME OF EXAM: 03/20/2024 1:54 PM CLINICAL INFORMATION: None relevant/not provided if blank. Indication: M25.50: Polyarthralgia Additional History: COMPARISON: None. FINDINGS: PA, lateral, and AP views of the left hand were obtained anddemonstrates subtle deformity with small clefts of the distal larissa of the third and fourth distal phalanges. This may simply be congenital in etiologyalthough old healed fractures cannot be excluded. Otherwise there is no evidence of acute fracture, dislocation, osseous malalignment, joint space narrowing or widening, nor erosive changes. IMPRESSION: Slight deformity of the larissa of the third and fourth distal phalanges with considerations for old healed traumatic fractures versus congenital etiology. > Interpreting Provider: Simon Parkinson MD on 03/20/2024 3:00 PM Shanti Lubin MD DIAGNOSTIC IMAGING O RDERABLES * XR Wrist Right 3Vw or More (03/20/2024 1:53 PM COLLEGE ADMINISTRATOR) Anatomical Region Laterality Modality Wrist / Hand Digital Radiogra phy 03/20/2024 2:54 PM COLLEGE ADMINISTRATOR Impressions 03/20/2024 2:55 PM COLLEGE ADMINISTRATOR IMPRESSION: No evidence of significant bone or joint space abnormality of the right wrist. > Interpreting Provider: Simon Parkinson MD on 03/20/2024 2:55 PM Narrative 03/20/2024 2:55 PM COLLEGE ADMINISTRATOR PROCEDURE: XR WRIST RIGHT 3VW OR MORE DATE/TIME OF EXAM: 03/20/2024 1:54 PM CLINICAL INFORMATION: None relevant/not provided if blank. Indication: M25.50: Polyarthralgia Additional History: COMPARISON: None. FINDINGS: 3 views of the right wrist were obtained to include PA, oblique and lateral views and shows no evidence of fracture, dislocation or disruption of the right wrist articulations. No evidence of bone or joint space destruction nor erosive changes identified. Bony mineralization appeared normal. Procedure Note Simon Parkinson MD - 03/20/2024 PROCEDURE: XR WRIST RIGHT 3VW OR MORE DATE/TIME OF EXAM: 03/20/2024 1:54 PM CLINICAL INFORMATION: None relevant/not provided if blank. Indication: M25.50: Polyarthralgia Additional History: COMPARISON: None. FINDINGS: 3 views of the right wrist were obtained to include PA, oblique andlateral views and shows no evidence of fracture, dislocation or disruption ofthe right wrist articulations. No evidence of bone or joint spacedestruction nor erosive changes identified. Bony mineralization appeared normal. IMPRESSION: No evidence of significant bone or joint space abnormalityof the right wrist. > Interpreting Provider: Simon Parkinson MD on 03/20/2024 2:55 PM Shanti Lubin MD DIAGNOSTIC IMAGING O RDERABLES * XR Wrist Left 3Vw or More (03/20/2024 1:53 PM COLLEGE ADMINISTRATOR) Anatomical Region Laterality Modality Wrist / Hand Digital Radiogra phy 03/20/2024 2:57 PM COLLEGE ADMINISTRATOR Impressions 03/20/2024 2:58 PM COLLEGE ADMINISTRATOR IMPRESSION: Normal-appearing 3 view study of the left wrist. > Interpreting Provider: Simon Parkinson MD on 03/20/2024 2:58 PM Narrative 03/20/2024 2:58 PM COLLEGE ADMINISTRATOR PROCEDURE: XR WRIST LEFT 3VW OR MORE DATE/TIME OF EXAM: 03/20/2024 1:54 PM CLINICAL INFORMATION: None relevant/not provided if blank. Indication: M25.50: Polyarthralgia Additional History: COMPARISON: None. FINDINGS: PA, oblique and lateral views of the left wrist are obtained and shows no evidence of fracture, dislocation, erosive changes nor disruption of the left wrist articulations. No evidence of bone or joint space destructive process. Bony mineralization appeared normal. Procedure Note Simon Parkinson MD - 03/20/2024 PROCEDURE: XR WRIST LEFT 3VW OR MORE DATE/TIME OF EXAM: 03/20/2024 1:54 PM CLINICAL INFORMATION: None relevant/not provided if blank. Indication: M25.50: Polyarthralgia Additional History: COMPARISON: None. FINDINGS: PA, oblique and lateral views of the left wrist are obtainedand shows no evidence of fracture, dislocation, erosive changes nordisruption of the left wrist articulations. No evidence of bone or joint space destructive process. Bony mineralization appeared normal. IMPRESSION: Normal-appearing 3 view study of the left wrist. > Interpreting Provider: Simon Parkinson MD on 03/20/2024 2:58 PM Shanti Lubin MD DIAGNOSTIC IMAGING O RDERABLES * COMPLETE PFT W/WO BRONCHODILATOR (11/20/2023 9:40 AM CDT) Impressions Riddhi Crews MD - 11/20/2023 9:40 AM CDT [facility] DEPARTMENT OF PULMONARY, CRITICAL CARE, AND SLEEP MEDICINE PULMONARY FUNCTION TEST Please see technologist's comments mentioned in the report. INTERPRETATION: SPIROMETRY: FVC: normal FEV1: normal FEV1/FVC ratio is normal BRONCHODILATOR RESPONSE: There is no significant response to bronchodilator therapy however does not preclude from bronchodilator therapy if clinically indicated otherwise FLOW-VOLUME LOOPS: Normal flow-volume loops LUNG VOLUMES: Lung volumes by body plethysmography show normal total lung volume and normal residual volume DLCO: Unadjusted for Hb and COHb is: normal (-1.65 to 1.645) ARTERIAL BLOOD GAS ANALYSIS: not performed IMPRESSION: 1. Normal Pulmonary Function Test 2. No significant bronchodilator response, however this does not preclude the use of bronchodilators 3. There is no previous study available for comparison. Kylee Arteaga MD Pulmonary and Critical Care Fellow [facility] Pager: [phone] I have personally reviewed the fellow's interpretation of the test and made any necessary changes when needed. Riddhi Crews MD Teacher Emotionally Impairedibm websphere commerce developer Division of Pulmonary, Critical Care and Sleep Medicine [facility] Pager: [phone] Narrative Riddhi Crews MD - 11/20/2023 9:40 AM CDT Kylee Arteaga MD 11/20/2023 11:04 AM Procedure Note Kylee Arteaga MD - 11/20/2023 9:40 AM CDT Images from the original note were not included. Isacc Simon MD RESPIRATORY THERAPY ORDERABLES * NEEDLE BIOPSY, LIVER (04/26/2023 1:21 PM COLLEGE ADMINISTRATOR) Narrative [facility] - 04/26/2023 1:21 PM COLLEGE ADMINISTRATOR Fazal Del Rosario MD 04/26/2023 1:24 PM PERCUTANEOUS LIVER BIOPSY PROCEDURE NOTE Patient Name: Mirna Amin Date: 04/26/2023 Time: 1:22 PM Attending: Fazal Del Rosario MD Fellow: None Diagnosis/Indication: Chronic hepatitis, H63D, PiMz, elevated liver enzymes for over 20 year, prior related liver issues, steatotic liver Location: Endoscopy Unit Admission Status: Outpatient PERMIT The indications, risks, benefits and alternatives, as described below, were explained to the patient who agreed to proceed. Signed, informed consent was obtained. Possible risks of percutaneous liver biopsy include: Bleeding- risk of hemodynamically significant bleed requiring blood transfusion or surgery is approximately 1:1,000 Perforation (gallbladder, lung, bowel, kidney, other) the risk of perforation is less than 1:1,000 Severe pain after biopsy, including referred shoulder pain; the risk of pain requiring analgesics is approximately 1:4. PROCEDURE DESCRIPTION The patient was placed in the supine position. The liver was palpated and percussed and an appropriate right intercostal space was identified using ultrasound. Ultrasound Limited abdominal ultrasound for localization was performed. The liver was noted to be in a good position with no visible lesions in the right lobe. Surrounding structures were identified and a suitable site for a liver biopsy was marked using right lateral intercostal view. Image was noted to be not printed for printer issues. The area was then prepped and draped in the usual sterile manner. 5 ml 1% lidocaine was used as a local anesthetic. Intravenous anxiolytic Versed 0 mg IV Fentanyl 0 mcg IV Biopsy performed after an endoscopic procedure: No. Instrument BioPince Ultra Full Core 16G Biopsy Instrument set at 23 mm (17 mm core was obtained) Adequate unfragmented tissue was obtained using 1 pass from the right lobe. Procedure tolerated Well. Additional Comments Vital signs were monitored during the procedure. Post procedure pain medication Oxycodone/acetaminophen 5/325 x 1-2 tabs prn Fentanyl 50 mcg IV q 30 min prn Immediate procedure complications Rt shoulder pain, Tylenol PRN. Tissue was sent for: Routine histology. Fixation time: 1:22 PM. Follow-up appointment: As scheduled. I personally performed this procedure. Fazal Del Rosario MD Fzaal Del Rosario MD GI PROCEDURE ORDERAB LES [facility] * PATHOLOGY TISSUE (04/26/2023 1:06 PM [facility]) Case Report Surgical Pathology Report Case: [id number] Authorizing Provider: Fazal Del Rosario MD Collected: 04/26/2023 01:06 PM Ordering Location: [facility] ENDOSCOPY Received: 04/26/2023 01:28 PM Pathologist: Yenny Neri MD Specimen: Liver, liver bx-elevated liver enzymes 04/30/2023 5:09 PM [facility] Final Diagnosis Liver, needle core biopsy (A): - Severe macrovesicular steatosis and mild lobular inflammation - No significant fibrosis - See description 04/30/2023 5:09 PM [facility] Microscopic Description and Comment The liver biopsy consists of one core of parenchyma with eight portal tracts notable for severe macrovesicular steatosis (80%) in a azonal distribution. Lobular activity is mild, overall 1-2 foci/20x field. Occasional degenerated-appearing hepatocytes are present, but definitive ballooned hepatocytes or Keke Denk bodies are not seen. The portal tracts have no to mild chronic inflammation without predominance of plasma cells or interface activity. The interlobular bile ducts are unremarkable without significant ductular reaction. The trichrome stain shows normal small portal tracts without significant perisinusoidal fibrosis or portal, periportal, or bridging fibrosis. There is no cirrhosis. The reticulin stain has normal amounts of reticulin but the network is distorted due to extensive steatosis. The PAS-D stain is negative for alpha-1 antitrypsin globules. The iron stain is negative. Controls stained appropriately. There are no features of chronic hepatitis or cholestatic liver disease. Overall, the liver biopsy shows severe macrovesicular steatosis and mild lobular inflammation without features of steatohepatitis. There is no significant fibrosis. The features are those of steatotic liver disease, with NAFLD activity score of 4/8 (steatosis -3, lobular inflammation- 1, ballooning-0) and stage of 0. The history of PiMZ status for xtyer-1-dwcwmppbaro deficiency is noted; however there are no alpha-1 antitrypsin globules. Similarly, although, there is a C282Y carrier state for hemochromatosis, there is no iron. 04/30/2023 5:09 PM [facility] Clinical History The patient is a 37-year-old woman with elevated liver enzymes for over 20 years, HELLP in both pregnancies, steatotic liver by imaging since 2009, clinical NAFLD, fibroscan low probability of fibrosis.Operative procedure: Percutaneous liver biopsy 04/30/2023 5:09 PM [facility] Gross Description The requisition and specimen(s) are identified with the patient's name Mirna Amin . Received in formalin, specimen A , consists of a 1.6 cm length x 0.1 cm diameter yellow-charles brown cylindrical core, submitted in toto in cassette A1. BAJ 04/30/2023 5:09 PM [facility] Pathologist Location at [facility] 04/30/2023 5:09 PM [facility] Disclaimer The performance characteristics of all immunohistochemical and indirect immunofluorescence stains (if any) cited in this report were determined by the Histopathology Laboratory of [facility]. Some of these tests were developed by our own laboratory and have not been cleared or approved by the US Food and Drug Administration. The FDA does not require this test to go through premarket FDA review. These tests are used for clinical purposes. They should not be regarded as investigational or for research. This laboratory is certified under the Clinical Laboratory Improvement Amendments (CLIA) as qualified to perform high complexity clinical laboratory testing. This case has been personally reviewed and interpreted by the attending (teaching) pathologist. 04/30/2023 5:09 PM COLLEGE ADMINISTRATOR [facility] Embedded Images 04/30/2023 5:09 PM COLLEGE ADMINISTRATOR [facility] Biopsy, Needle ENTIRE LIVER / Unknown 04/26/2023 1:06 PM COLLEGE ADMINISTRATOR 04/26/2023 1:28 PM COLLEGE ADMINISTRATOR Comment:Pre-op diagnosis: Jhgjf-5-gctxmntdmpaqfnyg deficiency [E88.09] Elevated LFTs [R79.89] Fazal Del Rosario MD LAB - PATHOLOGY/CYTO LOGY ORDERABLES Performing Organization Address City/[facility]/ZIP Co de Phone Number [facility] [address] [place] [address], [facility] [phone] * HCG URINE QUALITATIVE - POCT (IP) INTERFACED (04/26/2023 12:06 PM COLLEGE ADMINISTRATOR) HCG Qual Urine Negative Negative 04/26/2023 12:13 PM COLLEGE ADMINISTRATOR [facility] Urine URINE / Unknown 04/26/2023 1 2:06 PM COLLEGE ADMINISTRATOR 04/26/2023 12:13 PM COLLEGE ADMINISTRATOR Fazal Del Rosario MD LAB - POINT OF CARE ORDERABLES Performing Organization Address [facility]/ZIP Co de Phone Number [address] [address], [facility] [phone] * HCG URINE QUAL POCT NOTIFICATION (04/26/2023 12:04 PM COLLEGE ADMINISTRATOR) Comment Notification Label Only - See Separate Report 04/26/2023 1:30 PM COLLEGE ADMINISTRATOR [facility] [facility] Urine URINE / Unknown 04/26/2023 1 2:04 PM COLLEGE ADMINISTRATOR 04/26/2023 12:04 PM COLLEGE ADMINISTRATOR Fazal Del Rosario MD LAB - URINALYSIS ORD ERABLES Performing Organization Address City/[facility]/ZIP Co de Phone Number [address] [place] [address], [facility] [phone] * PT-INR [facility] (04/26/2023 11:07 AM COLLEGE ADMINISTRATOR) PT 12.4 12.1 - 14.8 Seconds 04/26/2023 11:38 AM COLLEGE ADMINISTRATOR [facility] LABORATORY [facility] INR 1.0 See Comment 04/26/2023 11:38 AM COLLEGE ADMINISTRATOR [facility] Comment:The suggested therap eutic range for standard coumadin (warfarin) therapy is an INR of 2.0-3.0. For high-risk patients (Mechanical Mitral Valve Prosthesis, etc.), the suggested prophylactic therapeutic range is an INR of 2.5-3.5. Blood BLOOD SPECIMEN / Unknown Venipuncture / Unknown 04/26/2023 11:07 AM COLLEGE ADMINISTRATOR 04/26/2023 11:10 AM COLLEGE ADMINISTRATOR Fazal Del Rosario MD LAB - COAGULATION OR DERABLES Performing Organization Address City/State/[facility] Co de Phone Number [facility] [address] [place] [address], [facility] [phone] * XR CHEST 2VW (03/13/2023 11:25 AM COLLEGE ADMINISTRATOR) Anatomical Region Laterality Modality Chest Radiographic Melinda ging 03/14/2023 8:46 AM COLLEGE ADMINISTRATOR Impressions 03/14/2023 3:30 PM COLLEGE ADMINISTRATOR IMPRESSION: No acute pulmonary process. Report dictated by Hernan Duarte MD (vice president corporate communications). I, Aries Whipple DO have personally reviewed and interpreted this examination/study. > Interpreting Provider: Aries Whipple DO on 03/14/2023 3:30 PM Narrative 03/14/2023 3:30 PM COLLEGE ADMINISTRATOR PROCEDURE: XR CHEST 2VW, DATE/TIME OF EXAM: 03/13/2023 11:25 AM, LOCATION 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 FINDINGS: There is no focal consolidation, pleural effusion, or pneumothorax. The cardiomediastinal silhouette is normal. The visible bony thorax is intact. Procedure Note Aries Whipple DO - 03/14/2023 PROCEDURE: XR CHEST 2VW, DATE/TIME OF EXAM: 03/13/2023 11:25 AM,LOCATION [facility] INDICATION: Z14.8: Pmcmf-3-dxdctwaeijn deficiency carrier R91.1: Pulmonary nodule COMPARISON: None. FINDINGS: There is no focal consolidation, pleural effusion, or pneumothorax. The cardiomediastinal silhouette is normal. The visible bony thorax isintact. IMPRESSION: No acute pulmonary process. Report dictated by Hernan Duarte MD (vice president corporate communications). I, Aries Whipple DO have personally reviewed and interpreted this examination/study. > Interpreting Provider: Aries Whipple DO on 03/14/2023 3:30 PM Isacc Simon MD DIAGNOSTIC IMAGING O RDERABLES * SMOOTH MUSCLE ANTIBODY W REFLEX TITER (03/01/2023 2:06 PM CDT) F-Actin Antibody IgG 5 0 - 19 Units 03/02/2023 11:39 PM CDT [employer] ([facility]) Comment: If F-Actin (Smooth Muscle) Antibody, IgG is negative, the Smooth Muscle Antibody titer by IFA is not performed. REFERENCE INTERVAL: F-Actin (Smooth Muscle) Antibody, IgG by EDWIN 19 Units or less ....... Negative 20 - 30 Units .......... Weak Positive-Suggest repeat testing in two to three weeks with fresh specimen. 31 Units or greater..... Positive-Suggestive of autoimmune hepatitis type 1 or chronic active hepatitis. F-actin IgG antibodies have been shown to have increased sensitivity for autoimmune hepatitis (AIH) but lower specificity than smooth muscle antibodies (SMA). F-actin IgG antibodies can also be seen in SMA-negative disease controls (non-AIH), especially in patients with primary biliary cirrhosis and chronic hepatitis C infections. Some patients with AIH may be SMA-positive but negative for F-actin IgG. Consider testing for SMA by IFA if suspicion for AIH is strong. Performed By: [facility] [address] [place] [address] [employer] Worker: Wade Contreras MD, PhD CLIA Number: [id number] Blood BLOOD SPECIMEN / Unknown Lab Venipuncture / Unknown 03/01/2023 2:06 PM CDT 03/01/2023 2:18 PM CDT [facility] Spivey [facility] - SEROL OGY ORDERABLES Performing Organization Address [facility] de Phone Number [facility] [employer] [facility]) [address] [place] [address] * MITOCHONDRIAL ANTIBODY SCREEN (03/01/2023 2:06 PM CDT) Only the most recent of2 resultswithin the time period is included. Mitochondrial M2 Antibody 3.2 0.0 - 24.9 Units 03/02/2023 11:39 PM CDT [facility] [employer] ([facility]) Comment: REFERENCE INTERVAL: Mitochondrial (M2) Antibody, IgG 20.0 Units or less ......... Negative 20.1 - 24.9 Units........... Equivocal 25.0 Units or greater....... Positive Anti-mitochondrial antibodies (AMA) are thought to be present in 90-95% of patients with primary biliary cholangitis (PBC). However, the frequency of detected antibodies may be cohort or assay dependent, as lower sensitivities have been reported. Not all PBC patients are positive for AMA; some patients may be positive for SP100 and/or GP210 antibodies. A negative result does not rule out PBC. Performed By: [facility] [address] [place] [address] [employer] Worker: Wade Contreras MD, PhD CLIA Number: [id number] Blood BLOOD SPECIMEN / Unknown Lab Venipuncture / Unknown 03/01/2023 2:06 PM CDT 03/01/2023 2:18 PM CDT Annie Spivey APRN-RAJAN LAB - CHEMI STRY ORDERABLES Performing Organization Address City/[facility]/ZIP Co de Phone Number [facility] [employer] ([facility]) [address] [place] [address] * ERROL BLOOD SCREEN W/REFLEX TITER (03/01/2023 2:06 PM CDT) ERROL IgG None Detected None Detected 03/03/2023 3:33 AM CDT [facility] ([facility]) Comment: If suspicion of connective tissue disease is strong and ERROL EIA is negative, consider testing for ERROL by IFA ([id number]). INTERPRETIVE INFORMATION: Anti-Nuclear Antibodies (ERROL), IgG by EDWIN Antinuclear Antibodies (ERROL), IgG by EDWIN: ERROL specimens are screened using enzyme-linked immunosorbent assay (EDWIN) methodology. All EDWIN results reported as Detected are further tested by indirect fluorescent assay (IFA) using HEp-2 substrate with an IgG-specific conjugate. The ERROL EDWIN screen is designed to detect antibodies against dsDNA, histones, SS-A (Ro), SS-B (La), Quintana, Quintana/MACHINE II COREMAKER, Scl-70, Ariadna-1, centromeric proteins, other antigens extracted from the HEp-2 cell nucleus. ERROL EDWIN assays have been reported to have lower sensitivities than ERROL IFA for systemic autoimmune rheumatic diseases (SARD). Negative results do not necessarily rule out SARD. Performed By: [facility] [address] [place] [address] [employer] Worker: Wade Contreras MD, PhD CLIA Number: [id number] Blood BLOOD SPECIMEN / Unknown Lab Venipuncture / Unknown 03/01/2023 2:06 PM CDT 03/01/2023 2:18 PM CDT Annie Spivey ANIMAL ATTENDANT-AIR EXPORT LOGISTICS MANAGER LAB - CHEMI STRY ORDERABLES [facility]) [address] [place] [address] * (ABNORMAL) XUMHJ-7-SMFLANVIEJA BLOOD (03/01/2023 2:06 PM CDT) Only the most recent of2 resultswithin the time period is included. [facility] Kbfqw-3-Wgfvob ypsin 88(L) 90 - 200 mg/dL 03/01/2023 2:43 PM CDT [facility] Blood BLOOD SPECIMEN / Unknown Lab Venipuncture / Unknown 03/01/2023 2:06 PM CDT 03/01/2023 2:18 PM CDT Annie Spivey ANIMAL ATTENDANT-AIR EXPORT LOGISTICS MANAGER LAB - CHEMI STRY ORDERABLES [facility] [address] [place] [address], [facility] [phone] * (ABNORMAL) CBC WITH DIFFERENTIAL (03/01/2023 2:06 PM CDT) Only the most recent of2 resultswithin the time period is included. WBC 9.7 3.5 - 10.5 10 3/uL 03/01/2023 2:36 PM CDT [facility] RBC 5.15 3.80 - 5.20 10 6/uL 03/01/2023 2:36 PM [facility] Hemoglobin 15.9(H) 12.0 - 15.6 g/dL 03/01/2023 2:36 PM [facility] Hematocrit 42.9 35.0 - 45.0 % 03/01/2023 2:36 PM [facility] MCV 83.3 80.7 - 98.3 fL 03/01/2023 2:36 PM [facility] MCH 30.9 26.7 - 34.0 pg 03/01/2023 2:36 PM T [facility] MCHC 37.1(H) 30.8 - 35.9 g/dL 03/01/2023 2:36 PM [facility] RDW-SD 35.9(L) 36.0 - 50.0 fL 03/01/2023 2:36 PM [facility] RDW-CV 12.0 11.2 - 14.8 % 03/01/2023 2:36 PM [facility] Platelet Count 153 150 - 400 10 3/uL 03/01/2023 2:36 PM [facility] MPV 12.1 9.4 - 12.9 fL 03/01/2023 2:36 PM [facility] Immature Platelet Fraction 13.6(H) 1.1 - 6.2 % 03/01/2023 2:36 PM T [facility] nRBC Absolute 0.00 0 10 3/uL 03/01/2023 2:36 PM [facility] nRBC Auto 0.0 0 /100 WBC 03/01/2023 2:36 PM [facility] Neutrophils % 66.3 35.0 - 70.0 % 03/01/2023 2:36 PM [facility] Lymphocytes % 26.3 20.0 - 43.0 % 03/01/2023 2:36 PM [facility] Monocytes % 5.1 5.0 - 13.0 % 03/01/2023 2:36 PM [facility] Eosinophils % 1.7 0.0 - 6.0 % 03/01/2023 2:36 PM [facility] Basophil % 0.3 0.0 - 2.0 % 03/01/2023 2:36 PM [facility] Neutrophils Absolute 6.43 1.60 - 7.00 10 3/uL 03/01/2023 2:36 PM [facility] Lymphocyte Absolute 2.55 1.10 - 3.90 10 3/uL 03/01/2023 2:36 PM T [facility] Monocytes Absolute 0.49 0.26 - 1.07 10 3/uL 03/01/2023 2:36 PM [facility] Eosinophils Absolute 0.16 0.00 - 0.47 10 3/uL 03/01/2023 2:36 PM [facility] Basophils Absolute 0.03 0.00 - 0.08 10 3/uL 03/01/2023 2:36 PM [facility] Immature Granulocytes % 0.3 0.0 - 1.0 % 03/01/2023 2:36 PM [facility] Immature Granulocytes Absolute 0.03 03/01/2023 2:36 PM [facility] Blood BLOOD SPECIMEN / Unknown Lab Venipuncture / Unknown 03/01/2023 2:06 PM CDT 03/01/2023 2:23 PM CDT Annie Spivey ANIMAL ATTENDANT-AIR EXPORT LOGISTICS MANAGER LAB - HEMAT OLOGY ORDERABLES [facility] [address] [place] [address], [facility] [phone] * (ABNORMAL) COMPREHENSIVE METABOLIC PANEL (03/01/2023 2:06 PM [facility]) Only the most recent of2 resultswithin the time period is included. BUN 10 7 - 26 mg/dL 03/01/2023 2:52 PM [facility] Creatinine 0.77 0.56 - 0.96 mg/dL 03/01/2023 2:52 PM [facility] Sodium 140 136 - 145 mmol/L 03/01/2023 2:52 PM [facility] Potassium 3.9 3.5 - 4.5 mmol/L 03/01/2023 2:52 PM [facility] Chloride 107 98 - 107 mmol/L 03/01/2023 2:52 PM [facility] CO2 27 22 - 29 mmol/L 03/01/2023 2:52 PM [facility] Glucose 94 70 - 115 mg/dL 03/01/2023 2:52 PM [facility] Calcium 9.5 8.4 - 10.2 mg/dL 03/01/2023 2:52 PM [facility] Protein Total 7.9 6.0 - 8.3 g/dL 03/01/2023 2:52 PM [facility] Albumin 4.9 3.4 - 5.0 g/dL 03/01/2023 2:52 PM [facility] Bilirubin Total 1.1 0.2 - 1.2 mg/dL 03/01/2023 2:52 PM [facility] Alkaline Phosphatase 47 40 - 150 U/L 03/01/2023 2:52 PM [facility] ALT 74(H) 5 - 55 U/L 03/01/2023 2:52 PM [facility] AST 44(H) 5 - 34 U/L 03/01/2023 2:52 PM [facility] Anion Gap 6 6 - 16 03/01/2023 2:52 PM [facility] BUN/Creatinine Ratio 13 7 - 23 03/01/2023 2:52 PM [facility] Osmolality Calculated 289 275 - 295 mOsm/kg 03/01/2023 2:52 PM [facility] Albumin/Globulin Ratio 1.6 1.1 - 2.3 03/01/2023 2:52 PM CDT [facility] eGFR by CKD-EPI >90 >=90 mL/min/1.7 3 m2 03/01/2023 2:52 PM CDT [facility] Blood BLOOD SPECIMEN / Unknown Lab Venipuncture / Unknown 03/01/2023 2:06 PM CDT 03/01/2023 2:23 PM CDT Annie Spivey APRN-AIR EXPORT LOGISTICS MANAGER LAB - CHEMI STRY ORDERABLES [address] [address], [facility] [phone] * GGT (03/01/2023 2:06 PM CDT) GGT 22 9 - 64 Units/L 03/01/2023 2:52 PM CDT [facility] Blood BLOOD SPECIMEN / Unknown Lab Venipuncture / Unknown 03/01/2023 2:06 PM CDT 03/01/2023 2:23 PM CDT Annie Spivey APRN-AIR EXPORT LOGISTICS MANAGER LAB - CHEMI STRY ORDERABLES [address] [address], [facility] [phone] * (ABNORMAL) IRON + TRANSFERRIN PANEL (03/01/2023 2:06 PM CDT) Iron 162(H) 40 - 150 ug/dL 03/01/2023 2:44 PM CDT [facility] Transferrin 225 174 - 382 mg/dL 03/01/2023 2:44 PM CDT [facility] Transferrin Saturation % 58(H) 16 - 50 % 03/01/2023 2:44 PM CDT [facility] TIBC Calculated 281 240 - 450 ug/dL 03/01/2023 2:44 PM CDT [facility] Blood BLOOD SPECIMEN / Unknown Lab Venipuncture / Unknown 03/01/2023 2:06 PM CDT 03/01/2023 2:18 PM CDT Annie Spivey ANIMAL ATTENDANT-AIR EXPORT LOGISTICS MANAGER LAB - CHEMI STRY ORDERABLES [address] [address], [place] [phone] * IGM BLOOD (03/01/2023 2:06 PM CDT) IgM 111 37 - 286 mg/dL 03/01/2023 2:44 PM CDT [facility] Blood BLOOD SPECIMEN / Unknown Lab Venipuncture / Unknown 03/01/2023 2:06 PM CDT 03/01/2023 2:18 PM CDT Annie Spivey APRN-AIR EXPORT LOGISTICS MANAGER LAB - CHEMI STRY ORDERABLES Performing Organization Address City/[facility]/ZIP Co de Phone Number [address] [address], [place] [phone] * IGG BLOOD (03/01/2023 2:06 PM CDT) IgG 1,019 767 - 1,590 mg/dL 03/01/2023 2:44 PM CDT [facility] Blood BLOOD SPECIMEN / Unknown Lab Venipuncture / Unknown 03/01/2023 2:06 PM CDT 03/01/2023 2:18 PM CDT [facility] LAB - CHEMI STRY ORDERABLES [address] [address], [place] [phone] * IGA BLOOD (03/01/2023 2:06 PM CDT) IgA 355 61 - 356 mg/dL 03/01/2023 2:44 PM CDT [facility] Blood BLOOD SPECIMEN / Unknown Lab Venipuncture / Unknown 03/01/2023 2:06 PM CDT 03/01/2023 2:18 PM CDT Annie Spivey ANIMAL ATTENDANT-AIR EXPORT LOGISTICS MANAGER LAB - CHEMI STRY ORDERABLES Performing Organization Address City/[facility]/ZIP Co de Phone Number [facility] [address] [place] [address], [place] [phone] * FERRITIN (03/01/2023 2:06 PM CDT) Only the most recent of2 resultswithin the time period is included. Ferritin 130 13 - 204 ng/mL 03/01/2023 3:02 PM CDT [facility] Blood BLOOD SPECIMEN / Unknown Lab Venipuncture / Unknown 03/01/2023 2:06 PM CDT 03/01/2023 2:18 PM CDT Annie Spivey ANIMAL ATTENDANT-AIR EXPORT LOGISTICS MANAGER LAB - CHEMI STRY ORDERABLES Performing Organization Address City/[facility]/ZIP Co de Phone Number [facility] [address] [place] [address], [place] [phone] * PROC FIBROSCAN (03/01/2023 1:06 PM CDT) Narrative Richie Carranza MD - 03/01/2023 1:06 PM CDT Richie Carranza MD 03/01/2023 3:04 PM Diagnosis: elevated liver exzymes RN verified patient NPO for prior 3 hours. Procedure explained. Date of Exam: 03/01/2023 Liver Stiffness: (LSM, kPa) median: 4.9 IQR/Median% (ideally < 30%): 9% CAP (controlled attenuation parameter): 294 Technical Difficulty: None Ordering Provider: Randell Spivey PA-C Phone Fax Fibroscan interpretation: I have personally reviewed the Fibroscan report and associated tracings. The calculated Liver Stiffness Measurement (LSM, kPa) indicates that: The probability of advanced liver fibrosis is: low. The loss of ultrasound signal, (controlled attenuation parameter, CAP [dB/m]), indicates that the probability of hepatic steatosis is: high. Richie Bentley MD The following criteria are used to indicate the probability of advanced (stage 3-4) fibrosis: < 7.0 kPa: low 7.0-8.9 kPa: low to moderate 9.0-14.9 kPa: moderate 15-20 kPa: high > 20 kPa: very high Liver stiffness > 20 kPa is also associated with a high probability of complications of portal hypertension including varices and ascites. Liver stiffness > 50 kPa is associated with a high risk of variceal bleeding. These interpretations are based on the following published data: Edita PJ, Angel M, Tashia M, et al. Accuracy of FibroScan controlled attenuation parameter and liver stiffness measurement in assessing steatosis and fibrosis in patients with nonalcoholic fatty liver disease. Gastroenterology 2019;156:8794-3362. Tony MS, Rupa R, Reuben Beach ML, et al. Vibration-controlled transient elastography to assess fibrosis and steatosis in patients with nonalcoholic fatty liver disease. Clin Gastroenterol Hepatol 2019;17:156-163. Note that scores have been developed that incorporate the Fibroscan liver stiffness measurement from large cohorts of patients with liver biopsies to further refine the ability of Fibroscan to identify patients with GLASS and advanced fibrosis. These include the FAST (Fibroscan-AST) score (Pily, 202) and the Agile3+ and Agile4 scores (Oanh, 202). Pily TA, Van Natta ML, Pamela M, Diaz A, et al. Validation of the accuracy of the FAST score for detecting patients with at-risk nonalcoholic steatohepatitis (GLASS) in a [place] cohort and comparison to other non-invasive algorithms. PLoS ONE (2021) 17: [id number]. Oanh MASTERS, Prudencio J, Mak ZM, et al. Enhanced diagnosis of advanced fibrosis and cirrhosis in individuals with NAFLD using FibroScan-based Agile scores. J Hepatol (2022) 78: 247-259. Fibroscan LSM can also be used with laboratory parameters without formulas to assess prognosis. According to the Baveno-VII criteria (Camara, 2021), Fibroscan LSM ?15 kPa plus a platelet count of ?[id number]/L rules out clinically significant portal hypertension (sensitivity and negative predictive value >90%) in patients with compensated advanced chronic liver disease. Camara R, Quique J, Hannah G, Kaz T, Tyra Wells on behalf of the [facility] VII Faculty. [facility] VII--Renewing consensus in portal hypertension. J Hepatol (2021) 76: 959-974 Assessing the likelihood of advanced fibrosis in patients with indeterminate liver stiffness measurement (LSM) by Fibroscan (e.g., 8-15 kPa) can be improved by also calculating the FIB-4 score (Nola et al. Hepatology Communications 2019;3:8131-5889) or NAFLD Fibrosis score (Palma et al. Clinical Gastroenterology and Hepatology 2019;17:2167-4686 using routine clinical data. Note: 1. Fibroscan cannot reliably identify earlier stages of fibrosis (ie distinguish F0 from F1 and F2) and thus a histologic stage cannot be predicted from the Fibroscan reading. 2. Liver stiffness can be increased by factors other than fibrosis including passive congestion, infiltrative processes, active alcoholism, recent moderate alcohol consumption in the 2 weeks before the exam, biliary obstruction and marked inflammation. The interpretation of the Fibroscan result provided above may not have taken such clinical factors into account. Disease etiology also influences Fibroscan cutoff values for fibrosis stages and the following cutoffs have been proposed (Valeria et al, Clin Gastro Hepatol 2015; 13:27-36): Cutoffs for Stage 3 and Stage 4 fibrosis respectively: Hepatitis B: >9 and >11.7 kPa Hepatitis C: >9.5 and >12.5 kPa HCV-HIV: >11 and >14 kPa Cholestatic liver diseases: >10 and >17.9 kPa NAFLD/GLASS: >10 and >14 kPa CAP estimates of steatosis: normal <200 dB/m mild 200 to 250 dB/m moderate 250-290 dB/m substantial > 290 dB/m (Note that Fibroscan is not a quantitative measure of liver fat.) These criteria are estimates and may change as additional supporting data becomes available. (This additional interpretive data was last updated 09/02/22.) [email or web address] Annie Rashel Spivey ANIMAL ATTENDANT-AIR EXPORT LOGISTICS MANAGER PROCEDURE/M INOR SURGICAL ORDERABLES * LAB MISC TEST (12/13/2017) Blood BLOOD SPECIMEN / Unknown Richie Carranza MD LAB SEND O UT * PROC FIBROSCAN (12/07/2017 1:45 PM CDT) Narrative Richie Bentley MD - 12/07/2017 1:45 PM CDT Richie Bentley MD 12/07/2017 1:45 PM Diagnosis: NAFLD RN verified patient not (patient may be - OK per Dr. Bentley), no implanted devices and NPO for prior 3 hours. Vital signs taken, procedure explained and consent signed. Date of Exam: 12/03/2017 Liver Stiffness: (E, kPa) median: 4.8 IQR (interquartile range): 0.7 IQR/Median% (ideally < 30%): 15 CAP (controlled attenuation parameter): 301 Technical Difficulty: None Ordering Provider: Richie Bentley MD Phone Fax Fibroscan interpretation: I have personally reviewed the Fibroscan report and associated tracings. The calculated liver stiffness (E, kPa) indicates that: The probability of advanced liver fibrosis is: low. The loss of ultrasound signal, (controlled attenuation parameter, CAP [dB/m]), indicates that the probability of hepatic steatosis is: high. Richie Bentley MD The following criteria are used to indicate the probability of advanced (stage 3-4) fibrosis: < 7.0 kPa: low 7.0-8.9 kPa: low to moderate 9.0-14.9 kPa: moderate 15-20 kPa: high > 20 kPa: very high Liver stiffness > 20 kPa is also associated with a high probability of complications of portal hypertension including varices and ascites. Liver stiffness > 50 kPa is associated with a high risk of variceal bleeding. Note: Liver stiffness is increased by factors other than fibrosis including passive congestion, infiltrative processes, active alcoholism, biliary obstruction and marked inflammation. The interpretation of the Fibroscan result provided above may not have taken such factors into account. Disease etiology also influences Fibroscan cutoff values for fibrosis stages and the following cutoffs have been proposed (Valeria et al, Clin Gastro Hepatol 2015; 13:27-36): Cutoffs for Stage 3 and Stage 4 fibrosis respectively: Hepatitis B: >9 and >11.7 kPa Hepatitis C: >9.5 and >12.5 kPa HCV-HIV: >11 and >14 kPa Cholestatic liver diseases: >10 and >17.9 kPa NAFLD/GLASS: >10 and >14 kPa CAP estimates of steatosis: normal <200 dB/m maybe present 200 to 250 dB/m moderate 250-300 dB/m substantial > 300 dB/m (Note that Fibroscan is not a quantitative measure of liver fat and the risk of NAFLD progression is unrelated to the degree of steatosis.) These criteria are estimates and may change as additional supporting data becomes available. [email or web address] Richie Carranza MD PROCEDURE/ MINOR SURGICAL ORDERABLES * ERROL W REFLEX DS-DNA+ONI+SSJ (12/05/2017 3:55 PM CDT) ERROL Direct Negative Negative [facility] INSURANCE BILL 12/05/2017 3:55 PM CDT 12/05/2017 Narrative Resulting Agency Comment [facility] [address] [facility] [phone] Richie Carranza MD LAB - SERO LOGY ORDERABLES [facility] INSURANCE BILL [address] [place] [address] * HEMOCHROMATOSIS MUTATION PANEL (12/05/2017 3:55 PM CDT) Pathologist [facility] Hereditary Hemochromatosis [facility] INSURANCE BILL Comment: Result: CARRIER Single mutation (C282Y) identified . Interpretation: This patient's sample was analyzed for the hereditary hemochromatosis (HH) mutations C282Y, H63D, and S65C. A single copy of C282Y was identified. Results for H63D and S65C were negative. This person is most likely an unaffected carrier. Approximately 1 in 9 Caucasians are carriers of HH. The mutations analyzed by [employer] are most common in the population. Because this panel does not identify rare HH mutations or HH mutations found in other ethnic groups, there are a small number of people who may have a single copy C282Y who are actually affected. The diagnosis of HH should include clinical findings and other test results, such as transferrin-iron saturation and/or serum ferritin studies and/or liver biopsy. HH is inherited in a recessive manner. Should this individual have children with a partner who is also a carrier for HH, there is a 25% chance per offspring that he/she is affected. Genetic counseling and HH molecular testing are recommended for at-risk family members. Methodology: DNA Analysis of the HFE gene was performed by PCR amplification followed by restriction enzyme digestion analyses. . Reference: Marj JS and Isidoro AP. (2000). Meche Test 4:97-101. Divya ALLRED et al. (1999). AM J Prev Med 16:134-140. Daniel Nguyen (2002). Lancet 360(1874):1671-26. Letitia Damico et al. (2002). Blood Cells, Molecules. and Diseases. 29(3):418-432. Kacey Coley et al. (2003). Meche Med. 5(1):1-8. Divya ALLRED et al. (2003). Meche Med. 5(4):304-10. This test was developed and its performance characteristics determined by [employer]. It has not been cleared or approved by the Food and Drug Administration. . Genetic counselors are available for health care providers to discuss results at [phone]. . Thad Gilbert, PhD, FACMG Kristy Ervin, PhD, FACMG Lucrecia Stover MlEliS., PhD, FACMG Bina Conway, PhD, FACMG Mary Chandra, PhD, FACMG Emory Jimenez, PhD, FACMG Blood BLOOD SPECIMEN / Unknown 12/05/2017 3:55 PM CDT 12/05/2017 Narrative Resulting Agency Comment [facility] [address] [employer] [place] [phone] Richie Carranza MD LAB - CHEM ISTRY ORDERABLES [facility] INSURANCE BILL [address] [place] [address] * CERULOPLASMIN (12/05/2017 3:55 PM CDT) Ceruloplasmin 26.6 19.0 - 39.0 mg/dL [facility] INSURANCE BILL Blood BLOOD SPECIMEN / Unknown 12/05/2017 3:55 PM CDT 12/05/2017 Narrative Resulting Agency Comment [address] [phone] Richie Carranza MD LAB - CHEM ISTRY ORDERABLES Performing Organization Address [facility] de Phone Number [facility] INSURANCE BILL [address] [place] [address] * SMOOTH MUSCLE ANTIBODY (12/05/2017 3:55 PM CDT) Actin (Smooth Muscle) Antibody 6 0 - 19 Units [facility] Comment: Negative 0 - 19 Weak positive 20 - 30 Moderate to strong positive >30 . Actin Antibodies are found in 52-85% of patients with autoimmune hepatitis or chronic active hepatitis and in 22% of patients with primary biliary cirrhosis. Blood BLOOD SPECIMEN / Unknown 12/05/2017 3:55 PM CDT 12/05/2017 Narrative Resulting Agency Comment [place] [id number] [facility] [phone] Richie Carranza MD LAB - SERO LOGY ORDERABLES Performing Organization Address [facility] de Phone Number [facility] INSURANCE BILL [address] [place] [address] * PT-INR (12/05/2017 3:55 PM CDT) INR 1.0 0.8 - 1.2 [facility] INSURANCE BILL Comment: Reference interval is for non-anticoagulated patients. . Suggested INR therapeutic range for Vitamin K antagonist therapy: Standard Dose (moderate intensity therapeutic range): 2.0 - 3.0 Higher intensity therapeutic range 2.5 - 3.5 PT 10.2 9.1 - 12.0 sec [facility] Blood BLOOD SPECIMEN / Unknown 12/05/2017 3:55 PM CDT 12/05/2017 Narrative Resulting Agency Comment [place] [id number] [facility] [phone] Richie Carranza MD LAB - COAG ULATION ORDERABLES [facility] INSURANCE BILL [address] [place] [address] * IRON + TIBC PANEL (12/05/2017 3:55 PM CDT) TIBC 291 250 - 450 ug/dL [facility] INSURANCE BILL UIBC 177 131 - 425 ug/dL [facility] INSURANCE BILL Iron 114 27 - 159 ug/dL [facility] INSURANCE BILL Iron Saturation 39 15 - 55 % [facility] INSURANCE BILL 12/05/2017 3:55 PM CDT 12/05/2017 Narrative Resulting Agency Comment [place] [id number] [facility] [phone] Richie Carranza MD LAB - CHEM ISTRY ORDERABLES Performing Organization Address [facility] Co de Phone Number [facility] INSURANCE BILL [address] [place] [address] * HEPATITIS B SURFACE ANTIBODY (12/05/2017 3:55 PM CDT) Hepatitis B Virus Surface Antibody Reactive [facility] INSURANCE BILL Comment: Non Reactive: Inconsistent with immunity, less than 10 mIU/mL Reactive: Consistent with immunity, greater than 9.9 mIU/mL 12/05/2017 3:55 PM CDT 12/05/2017 Narrative Resulting Agency Comment [place] [id number] [facility] [phone] Richie Carranza MD LAB - CHEM ISTRY ORDERABLES Performing Organization Address City/[facility]/ZIP Co de Phone Number [facility] INSURANCE BILL [address] [place] [address] * HEPATITIS B CORE ANTIBODY (12/05/2017 3:55 PM CDT) Hepatitis B Core Virus Antibody Total Negative Negative [facility] INSURANCE BILL Blood BLOOD SPECIMEN / Unknown 12/05/2017 3:55 PM CDT 12/05/2017 Narrative Resulting Agency Comment [facility] [address] [facility] [phone] Richie Carranza MD LAB - CHEM ISTRY ORDERABLES Performing Organization Address [facility] de Phone Number [facility] INSURANCE BILL [address] [place] [address] * HEPATITIS B SURFACE ANTIGEN W RFLX CONFIRMATION (12/05/2017 3:55 PM CDT) Hepatitis B Virus Surface Antigen Negative Negative [facility] INSURANCE BILL Blood BLOOD SPECIMEN / Unknown 12/05/2017 3:55 PM CDT 12/05/2017 Narrative Resulting Agency Comment [place] [id number] [facility] [phone] Richie Carranza MD LAB - CHEM ISTRY ORDERABLES Performing Organization Address [facility] de Phone Number [facility] INSURANCE BILL [address] [place] [address] * BILIRUBIN DIRECT (12/05/2017 3:55 PM CDT) Bilirubin Direct 0.27 0.00 - 0.40 mg/dL [facility] INSURANCE BILL Blood BLOOD SPECIMEN / Unknown 12/05/2017 3:55 PM CDT 12/05/2017 Narrative Resulting Agency Comment [facility] [address] [facility] [phone] Richie Carranza MD LAB - CHEM ISTRY ORDERABLES Performing Organization Address [facility] de Phone Number [facility] INSURANCE BILL [address] [place] [address] * HEPATITIS C ANTIBODY (12/05/2017 3:55 PM CDT) Hepatitis C Antibody 0.3 0.0 - 0.9 s/co ratio [facility] INSURANCE BILL Comment: Negative: < 0.8 Indeterminate: 0.8 - 0.9 Positive: > 0.9 . The CDC recommends that a positive HCV antibody result be followed up with a HCV Nucleic Acid Amplification test (234866). Blood BLOOD SPECIMEN / Unknown 12/05/2017 3:55 PM CDT 12/05/2017 Narrative Resulting Agency Comment [facility] [address] [facility] [phone] Richie Carranza MD LAB - CHEM ISTRY ORDERABLES [facility] INSURANCE BILL [address] [place] [address] * HEPATITIS A IGM ANTIBODY (12/05/2017 3:55 PM CDT) Hepatitis A Virus Antibody IgM Negative Negative [facility] INSURANCE BILL 12/05/2017 3:55 PM CDT 12/05/2017 Narrative Resulting Agency Comment [facility] [address] [facility] [phone] Richie Carranza MD LAB - CHEM ISTRY ORDERABLES Performing Organization Address City/[facility]/ZIP Co de Phone Number [facility] INSURANCE BILL [address] [place] [address] Care Teams Graining Press Operator Relationship Specialty Start Date End Date Clarissa Lund, ANIMAL ATTENDANT-AIR EXPORT LOGISTICS MANAGER [address] [facility] [address] [address] PCP - General Nurse Practitioner 03/20/24
--- OUTSIDE RECORDS SUMMARY | 2024-06-16 18:25 | XMS_ITS | Clinical Summary ---
Author Organization [facility] Address [address] [place] [address] Care Team Providers Care Payloader Machine Operator Name Role Phone Kristy Hauser MD Primary Care Provider + Allergies Active Allergy Reactions Criticality Noted Date Comments Butorphanol Other (See comments) High 12/03/2017 Opioids - Morphine Analogues Other (See comments) High 08/11/2015 Medications norethindrone-e.est radioL-iron (LO LOESTRIN FE) 1 mg-10 mcg (24)/10 mcg (2) tablet per tablet daily Active vit iron lwo-lwqtm-puz 29 mg iron- 1 mg-25 mg tablet 19 (with docusate) 29 mg iron-1 mg-25 mg tablet Take 1 tablet by oral route. Active NORLYDA 0.35 mg tablet TK 1 T PO QD 3 9 Active ondansetron (ZOFRAN) 4 mg tablet TK 1 T PO Q 6 H PRN NV 0 9 Active COVID-19 mRNA,NYC156V2 (500Shops) 30 mcg/0.3 mL suspension for reconstitution [facility] COVID-19 Vaccine (PF) 30 mcg/0.3 mL IM suspension(E UA) Active Estarylla 0.25-35 mg-mcg per tablet Take 1 tablet by mouth daily 1 Active propranoloL (INDERAL) 10 mg tablet 1 Active rizatriptan (MAXALT) 5 mg tabletIndications:M igraine Take 5 mg by mouth once as needed for migraine May repeat in 2 hours if unresolved. Do not exceed 30 mg in 24 hours. 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 Negative colonoscopies. Breathe tests mildly elevated for SIBO. Rifaximin didn't help. Low FODMAP diet helps a lot. Elevated liver enzymes 12/03/2017 Migraine 12/03/2017 NAFLD (nonalcoholic fatty liver disease) 018 Overview (08/04/2020): 01/22/17 CT for abdominal pain: fatty liver , no splenomegaly 09/06/17 CT for bloating: fatty liver, no splenomegaly 12/03/17 Fibroscan CAP 301, E 4.8 kPa Abdominal bloating 01/16/2017 Abdominal pain 01/16/2017 Disorder involving thrombocytopenia (CMS/HCC) Immunizations Immunization Administration Dates Next Due Tdap 11/11/2008 Surgical History Surgery Date Site/Laterality Comments OTHER SURGICAL HISTORY Constipation: antibiotics Medical History Medical History Date Comments Hx Other Medical eczema ? History of multiple allergies Al lergies Hx Other Medical Headache, migra ine Constipation 2008 Constipation Breast lump Family History Medical History Relation Name Comments Other Father Alive and well; Coronary artery disease Maternal Grandfather Coronary artery disease; Coronary artery disease Maternal Grandmother Coronary artery disease; Hyperthyroidism Mother Hyperthyroid ism; Other Other 1 No family histo ry of Diabetes mellitus; Other Other 2 No family histo ry of Stroke; Lung cancer Paternal Grandmother Cancer -lung; Relation Name Status Comments Father Alive Maternal Grandfather Maternal Grandmother Mother Other 1 Other 2 Paternal Grandmother Social History Tobacco Use Types Packs/Day Years Used Date Smoking Tobacco: Never Smokeless Tobacco: Never Alcohol Use Standard Drinks/Week Comments Yes 0 (1 standard drink = 0.6 oz pur e alcohol) Comments No Sex and Gender Information Value Date Recorded Sex Assigned at Not on file Legal Sex Female 7:39 AM MENTAL TELEPATHIST Gender Identity Female 10/02/2018 1:03 PM CDT Sexual Orientation Not on file Obstetrics History Last Filed Vital Signs Vital Sign Reading Time Taken Comments Blood Pressure 118/75 07/12/2021 7:00 PM CDT Pulse 54 07/12/2021 7:30 PM CDT Temperature 36.7 C (98.1 F) 07/12/2021 5:00 PM CDT Respiratory Rate 16 07/12/2021 5:00 PM CDT Oxygen Saturation 100% 07/12/2021 7:30 PM CDT Inhaled Oxygen Concentration - - Weight 72.6 kg (160 lb) 07/12/2021 4:55 PM CDT Height 162.6 cm (5' 4 ) 07/12/2021 4:55 PM CDT Body Mass Index 27.46 07/12/2021 4:55 PM CDT Plan of Treatment Health Maintenance Due Date Last Done Comments Cervical Cancer Screening 1984 Depression Screening 1984 Hepatitis C Screening 1984 Pneumococcal vaccine <65 (1 of 2 - PCV) 1990 Varicella Vaccines (1 of 2 - 13+ 2-dose series) 1997 Hepatitis B Screening 2002 Regular Well Visit/Exam 18-64 2002 Influenza Vaccine (#1) 2023 0, 08/11/2015, 04/22/2015 DTaP/Tdap/Td Vaccine (3 - Td or Tdap) 09/14/2028 09/14/2018, 11/11/2008 HPV Vaccines Aged Out No longer eligi ble based on patient's age to complete this topic [place] Care Teams Payloader Machine Operator Relationship Specialty Start Date End Date Kristy Hauser MD PCP - General Family Medicine 10/02/18
--- OUTSIDE RECORDS SUMMARY | 2024-06-16 18:25 | XMS_ITS | Clinical Summary ---
Author Organization [email or web address] Address [address] [place] [address] Care Team Providers Care Law Librarian Name Role Phone Clarissa Lund Elvi FOYN-VETERINARY PHARMACOLOGIST Primary Care Provider Source Comments [facility] Affiliates and Associated Physician Practices is amultiple site organization consisting of ambulatory clinics and hospital sitesin [place], [place], [place] and [place]. This disclosure is being madepursuant to the Care Everywhere program and may not contain all information available regarding this patient. Last updated [email or web address] Allergies Active Allergy Reactions Criticality Noted Date Comments Butorphanol GREEN COFFEE BLENDER Dysfunction 12/03/2017 Medications * Be aware that medications may not be up to date on this document. Alwaysverify current medications with the patient. 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 Negative colonoscopies. Breathe tests mildly elevated for SIBO. Rifaximin didn't help. Low FODMAP diet helps a lot. 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), no significant fibrosis 05/16/23 enrolled in NIH vitamin E dosing trial (ALT 75) 05/16/23 Fibroscan CAP 298, LSM 8.1 kPa 11/16/23 end of trial treatment phase ALT 64 05/15/24 Fibroscan CAP 349, LSM 6.9 kPa (study completion), ALT 56 Migraine 12/03/2017 Encounters Date Type Department Care Team Description 06/01/2024 Orders Only [facility] - GI [address] [place] [phone] Richie Villafuerte MD 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, previously known as NAFLD) ; Dugbi-5-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; Hypobetalipoproteinemi a 03/20/2024 1:46 PM BOOKY - 03/20/2024 11:59 PM BOOKY Hospital Encounter [facility] DIAGNOSTIC RAD OP [address] [place] [phone] Shanti Lubin MD Discharge Disposition: Home or Self Care 03/20/2024 1:45 PM BOOKY Hospital Encounter [facility] LAB OP DRAW STATION [address] [place] [address] Shanti Lubin MD Discharge Disposition: Home or Self Care 03/20/2024 1:00 PM BOOKY Office Visit [facility] - Rheumatology [address] [place] [phone] Shanti Lubin MD Polyarthralgia (Primary Dx); Fatigue, unspecified type 03/20/2024 Travel from Last 3 Months Social History Tobacco Use Types Packs/Day Years [...] Comments Blood Pressure 146/94 03/20/2024 1:07 PM BOOKY Pulse 77 03/20/2024 1:07 PM BOOKY Temperature 36.7 C (98.1 F) 03/20/2024 1:07 PM BOOKY Respiratory Rate 17 11/20/2023 9:27 AM CDT Oxygen Saturation 98% 03/20/2024 1:07 PM BOOKY Inhaled Oxygen Concentration - - Weight 77.1 kg (170 lb) 03/20/2024 1:07 PM BOOKY Height 167.6 cm (5' 6 ) 03/20/2024 1:07 PM BOOKY Body Mass Index 27.44 03/20/2024 1:07 PM BOOKY Plan of Treatment Upcoming Encounters Date Type Department Care Team (Late st Contact Info) Description 09/16/2024 11:20 AM CDT Office Visit [facility] - Rheumatology [address] [place] [phone] Shanti Lubin MD [address] [place] [address] [place] [phone] Health Maintenance Due Date Last Done Comments PAP SMEAR 1984 HIV SCREENING 08/29/1999 DTAP/TDAP/TD VACCINES (1 - Tdap) 08/29/2003 HEPATITIS B VACCINE (1 of 3 - 19+ 3-dose series) 08/29/2003 COVID-19 VACCINE ( - 2023-2 5 season) 2023 INFLUENZA VACCINE (#1) 2023 DEPRESSION SCREENING 04/30/2024 03/20/2024 ZOSTER VACCINE (1 of 2) 2034 HEPATITIS C SCREENING Completed 12/05/2017 HIB VACCINE Aged Out No longer eligi ble based on patient's age to complete this topic HPV VACCINE Aged Out No longer eligi ble based on patient's age to complete this topic MENINGOCOCCAL (Group B) VACCINE Aged Out No longer eligible based on patient's age to complete this topic MENINGOCOCCAL VACCINE Aged Out No tawnya daniel eligible based on patient's age to complete this topic PNEUMOCOCCAL VACCINE Aged Out No long er eligible based on patient's age to complete this topic Procedures Procedure Name Priority Date/Time Associated Diagnosis Comments CYCLIC CITRULLINATED PEPTIDE(CCP) AB IGG Routine 03/20/2024 1:57 PM BOOKY Polyarthralgia XR WRIST RIGHT 3VW OR MORE Routine 03/20/2024 1:53 PM BOOKY Polyarthralgia XR WRIST LEFT 3VW OR MORE Routine 03/20/2024 1:53 PM BOOKY Polyarthralgia XR HAND LEFT 3VW OR MORE Routine 03/20/2024 1:53 PM BOOKY Polyarthralgia XR HAND RIGHT 3VW OR MORE Routine 03/20/2024 1:53 PM BOOKY Polyarthralgia HEPATITIS C ANTIBODY Routine 12/05/2017 3:55 PM CDT NAFLD (nonalcoholic fatty liver disease) Elevated liver enzymes from Last 3 Months or Most Recently Relevant to Health Maintenance Results * CYCLIC CITRULLINATED PEPTIDE(CCP) AB IGG (03/20/2024 1:57 PM BOOKY) CCP Antibody IgG 0.8 <5.0 U/mL 03/20/2024 3:02 PM BOOKY [facility] Blood BLOOD SPECIMEN / Unknown Lab Venipuncture / Unknown 03/20/2024 1:57 PM BOOKY 03/20/2024 2:09 PM BOOKY Shanti Lubin MD LAB - CHEMISTRY JUAREZ [place] Organization Address [facility]/State/[facility] Co de Phone Number [facility] [address] [place] [address], [facility] [phone] * XR Hand Right 3Vw or More (03/20/2024 1:53 PM BOOKY) Anatomical Region Laterality Modality Wrist / Hand Digital Radiogra phy 03/20/2024 2:55 PM BOOKY Impressions 03/20/2024 2:57 PM BOOKY IMPRESSION: Normal-appearing 3 view study of the right hand. > Interpreting Provider: Simon Parkinson MD on 03/20/2024 2:57 PM Narrative 03/20/2024 2:57 PM BOOKY PROCEDURE: XR HAND RIGHT 3VW OR MORE [...] Left 3Vw or More (03/20/2024 1:53 PM BOOKY) Anatomical Region Laterality Modality Wrist / Hand Digital Radiogra phy 03/20/2024 2:58 PM BOOKY Impressions 03/20/2024 3:00 PM BOOKY IMPRESSION: Slight deformity of the larissa of the third and fourth distal phalanges with considerations for old healed traumatic fractures versus congenital etiology. > Interpreting Provider: Simon Parkinson MD on 03/20/2024 3:00 PM Narrative 03/20/2024 3:00 PM BOOKY PROCEDURE: XR HAND LEFT 3VW OR MORE [...] Right 3Vw or More (03/20/2024 1:53 PM BOOKY) Anatomical Region Laterality Modality Wrist / Hand Digital Radiogra phy 03/20/2024 2:54 PM BOOKY Impressions 03/20/2024 2:55 PM BOOKY IMPRESSION: No evidence of significant bone or joint space abnormality of the right wrist. > Interpreting Provider: Simon Parkinson MD on 03/20/2024 2:55 PM Narrative 03/20/2024 2:55 PM BOOKY PROCEDURE: XR WRIST RIGHT 3VW OR MORE [...] Left 3Vw or More (03/20/2024 1:53 PM BOOKY) Anatomical Region Laterality Modality Wrist / Hand Digital Radiogra phy 03/20/2024 2:57 PM BOOKY Impressions 03/20/2024 2:58 PM BOOKY IMPRESSION: Normal-appearing 3 view study of the left wrist. > Interpreting Provider: Simon Parkinson MD on 03/20/2024 2:58 PM Narrative 03/20/2024 2:58 PM BOOKY PROCEDURE: XR WRIST LEFT 3VW OR MORE [...] PM Shanti Lubin MD DIAGNOSTIC IMAGING O NURIS * HEPATITIS C ANTIBODY (12/05/2017 3:55 PM CDT) Hepatitis C Antibody 0.3 0.0 - 0.9 s/co ratio [facility] INSURANCE BILL Comment: Negative: < 0.8 Indeterminate: 0.8 - 0.9 Positive: > 0.9 . The CDC recommends that a positive HCV antibody result be followed up with a HCV Nucleic Acid Amplification test (291189). Blood BLOOD SPECIMEN / Unknown 12/05/2017 3:55 PM CDT 12/05/2017 Narrative Resulting Agency Comment [facility] [address] [facility] [facility] [phone] Richie Carranza MD LAB - CHEM ISTRY ORDERABLES [facility] INSURANCE BILL [address] [place] [address] from Last 3 Months or Most Recently Relevant to Health Maintenance Care Teams Law Librarian Relationship Specialty Start Date End Date Clarissa Lund, SHOE STITCHER ODD-VETERINARY PHARMACOLOGIST [address] [place] [address] PCP - General Nurse Practitioner 03/20/24
--- OUTSIDE RECORDS SUMMARY | 2024-06-16 18:25 | XMS_ITS | Referral Summary ---
Author Organization [facility] Address [address] [place] [address] Care Team Providers Care Hatchery Attendant Name Role Phone Clarissa Lund RATE REVIEWER-THROUGH FREIGHT ENGINEER Primary Care Provider Source Comments [facility],non-owned Affiliates and Associated Physician Practices is amultiple site organization consisting of ambulatory clinics and hospital sitesin [place], [place], [place] and [place]. This disclosure is being madepursuant to the Care Everywhere program and may not contain all information available regarding this patient. Last updated 18.[facility] Encounters Date Type Department Care Team Description 06/01/2024 Orders Only [facility] - GI 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 [place] [address] Shanit Lubin MD Polyarthralgia (Primary Dx); Fatigue, unspecified type from Last 3 Months Allergies Active Allergy Reactions Criticality Noted Date Comments Butorphanol MEDICAL INSTRUCTOR Dysfunction 12/03/2017 Medications * Be aware that medications may not be up to date on this document. Alwaysverify current medications with the patient. 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 8 Overview (05/16/2023): MZ phenotype, [...] heterozygote), no significant fibrosis 05/16/23 enrolled in [facility] vitamin E dosing trial (ALT 75) 05/16/23 Fibroscan CAP 298, LSM 8.1 kPa 11/16/23 end of trial treatment phase ALT 64 05/15/24 Fibroscan CAP 349, LSM 6.9 kPa (study completion), ALT 56 Migraine 12/03/2017 Social History Tobacco Use Types [...] Comments Blood Pressure 146/94 03/20/2024 1:07 PM MOLD OPERATOR Pulse 77 03/20/2024 1:07 PM MOLD OPERATOR Temperature 36.7 C (98.1 F) 03/20/2024 1:07 PM MOLD OPERATOR Respiratory Rate 17 11/20/2023 9:27 AM CDT Oxygen Saturation 98% 03/20/2024 1:07 PM MOLD OPERATOR Inhaled Oxygen Concentration - - Weight 77.1 kg (170 lb) 03/20/2024 1:07 PM MOLD OPERATOR Height 167.6 cm (5' 6 ) 03/20/2024 1:07 PM MOLD OPERATOR Body Mass Index 27.44 03/20/2024 1:07 PM MOLD OPERATOR Functional Status Functional Status Response Date of Assess ment Is person deaf or have serious hearing difficult y? No 04/26/2023 Is person blind or have serious difficulty seein g? No 04/26/2023 Does person have serious dif ficulty walking/climbing stairs? No 04/26/2023 Does person have difficulty dressing/bathing? No 04/26/2023 Does person have difficulty doing errands alone? No 04/26/2023 Cognitive Status Response Date of Assessm ent Does person have difficulty concentrating/remembering/making decisions? No 04/26/2023 Plan of Treatment Upcoming Encounters Date Type Department Care Team (Late st Contact Info) Description 09/16/2024 11:20 AM CDT Office Visit [facility] - Rheumatology [address] [place] [address], [place] [address] Shanti Lubin MD [address] [place] [address] [place] [address] Procedures Procedure Name Priority Date/Time Associated Diagnosis Comments CYCLIC CITRULLINATED PEPTIDE(CCP) AB IGG Routine 03/20/2024 1:57 PM MOLD OPERATOR Polyarthralgia XR WRIST RIGHT 3VW OR MORE Routine 03/20/2024 1:53 PM MOLD OPERATOR Polyarthralgia XR WRIST LEFT 3VW OR MORE Routine 03/20/2024 1:53 PM MOLD OPERATOR Polyarthralgia XR HAND LEFT 3VW OR MORE Routine 03/20/2024 1:53 PM MOLD OPERATOR Polyarthralgia XR HAND RIGHT 3VW OR MORE Routine 03/20/2024 1:53 PM MOLD OPERATOR Polyarthralgia HEPATITIS C ANTIBODY Routine 12/05/2017 3:55 PM CDT NAFLD (nonalcoholic fatty liver disease) Elevated liver enzymes from Last 3 Months or Most Recently Relevant to Health Maintenance Results * CYCLIC CITRULLINATED PEPTIDE(CCP) AB IGG (03/20/2024 1:57 PM MOLD OPERATOR) CCP Antibody IgG 0.8 <5.0 U/mL 03/20/2024 3:02 PM MOLD OPERATOR [facility] Blood BLOOD SPECIMEN / Unknown Lab Venipuncture / Unknown 03/20/2024 1:57 PM MOLD OPERATOR 03/20/2024 2:09 PM MOLD OPERATOR Shanti Lubin MD LAB - CHEMISTRY ORDE [facility] [address] [place] [address], [facility] [phone] * XR Hand Right 3Vw or More (03/20/2024 1:53 PM MOLD OPERATOR) Anatomical Region Laterality Modality Wrist / Hand Digital Radiogra phy 03/20/2024 2:55 PM MOLD OPERATOR Impressions 03/20/2024 2:57 PM MOLD OPERATOR IMPRESSION: Normal-appearing 3 view study of the right hand. > Interpreting Provider: Simon Parkinson MD on 03/20/2024 2:57 PM Narrative 03/20/2024 2:57 PM MOLD OPERATOR PROCEDURE: XR HAND RIGHT 3VW OR MORE [...] Left 3Vw or More (03/20/2024 1:53 PM MOLD OPERATOR) Anatomical Region Laterality Modality Wrist / Hand Digital Radiogra phy 03/20/2024 2:58 PM MOLD OPERATOR Impressions 03/20/2024 3:00 PM MOLD OPERATOR IMPRESSION: Slight deformity of the larissa of the third and fourth distal phalanges with considerations for old healed traumatic fractures versus congenital etiology. > Interpreting Provider: Simon Parkinson MD on 03/20/2024 3:00 PM Narrative 03/20/2024 3:00 PM MOLD OPERATOR PROCEDURE: XR HAND LEFT 3VW OR MORE [...] Right 3Vw or More (03/20/2024 1:53 PM MOLD OPERATOR) Anatomical Region Laterality Modality Wrist / Hand Digital Radiogra phy 03/20/2024 2:54 PM MOLD OPERATOR Impressions 03/20/2024 2:55 PM MOLD OPERATOR IMPRESSION: No evidence of significant bone or joint space abnormality of the right wrist. > Interpreting Provider: Simon Parkinson MD on 03/20/2024 2:55 PM Narrative 03/20/2024 2:55 PM MOLD OPERATOR PROCEDURE: XR WRIST RIGHT 3VW OR MORE [...] Left 3Vw or More (03/20/2024 1:53 PM MOLD OPERATOR) Anatomical Region Laterality Modality Wrist / Hand Digital Radiogra phy 03/20/2024 2:57 PM MOLD OPERATOR Impressions 03/20/2024 2:58 PM MOLD OPERATOR IMPRESSION: Normal-appearing 3 view study of the left wrist. > Interpreting Provider: Simon Parkinson MD on 03/20/2024 2:58 PM Narrative 03/20/2024 2:58 PM MOLD OPERATOR PROCEDURE: XR WRIST LEFT 3VW OR MORE [...] Lubin MD DIAGNOSTIC IMAGING O RDERABLES * HEPATITIS C ANTIBODY (12/05/2017 3:55 PM CDT) Hepatitis C Antibody 0.3 0.0 - 0.9 s/co ratio [facility] INSURANCE BILL Comment: Negative: < 0.8 Indeterminate: 0.8 - 0.9 Positive: > 0.9 . The CDC recommends that a positive HCV antibody result be followed up with a HCV Nucleic Acid Amplification test (462530). Blood BLOOD SPECIMEN / Unknown 12/05/2017 3:55 PM CDT 12/05/2017 Narrative Resulting Agency Comment [address] [phone] Richie Carranza MD LAB - CHEM ISTRY ORDERABLES [facility] INSURANCE BILL [address] [place] [address] from Last 3 Months or Most Recently Relevant to Health Maintenance Care Teams Hatchery Attendant Relationship Specialty Start Date End Date Clarissa Lund, RATE REVIEWER-THROUGH FREIGHT ENGINEER [address] [facility] [address] [place] [id number] PCP - General Nurse Practitioner 03/20/24
--- OUTSIDE RECORDS SUMMARY | 2024-06-16 18:25 | XMS_ITS | Clinical Summary ---
Author Organization [facility] Address [address] [place] [address] Phone Care Team Providers Care Fiberglass Quality Technician Name Role Phone Provider, None Primary Care Provider Unavailabl e Social History Tobacco Use Types Packs/Day Years Used Date Smoking Tobacco: Never Assessed Comments Unknown Sex and Gender Information Value Date Recorded Sex Assigned at Female 11/29/2023 2:50 PM CDT Legal Sex Female 2:49 PM CDT Gender Identity Female 11/29/2023 2:50 PM CDT Sexual Orientation Not on file Plan of Treatment Health Maintenance Due Date Last Done Comments Hepatitis C Virus (HCV) Screening 1984 Hepatitis B Immunization (1 of 3 - 19+ 3-dose series) 08/29/2003 Pap Smear 2005 Cervical Cancer Screening (CCS) 2014 HPV/Cotest 2014 Influenza Immunization (#1) 12/30/2023/12/2020, 04/22/2015 SARS-COV-2 Immunization ( season) 2023 04/27/2021, 05/19/2020, 04/28/2020 Respiratory Syncytial Virus (RSV) Immunization (Adult) (1 - 1-dose 75+ series) 08/29/2059 TdaP Immunization Completed 09/14/2018, 11/11/2008 Meningococcal Immunization (ACWY) Aged Out No longer eligible b ased on patient's age to complete this topic Pneumococcal Immunization Combined Aged Out No longer eligible b ased on patient's age to complete this topic Rotavirus Immunization Aged Out No lo nger eligible based on patient's age to complete this topic Insurance [address] [place] [address] [facility] Care Teams Fiberglass Quality Technician Relationship Specialty Start Date End Date Provider, None [place] PCP - General 11/29/23
--- OUTSIDE RECORDS SUMMARY | 2024-06-16 18:25 | XMS_ITS | Referral Summary ---
Author Organization [facility] Address [address] [place] [address] Care Team Providers Care Tank Setter Name Role Phone Kristy Hauser MD Primary Care Provider + Allergies Active Allergy Reactions Criticality Noted Date Comments Butorphanol Other (See comments) High 12/03/2017 Opioids - Morphine Analogues Other (See comments) High 08/11/2015 Medications norethindrone-e.est radioL-iron (LO LOESTRIN FE) 1 mg-10 mcg (24)/10 mcg (2) tablet per tablet daily Active vit iron iaj-zhoqg-zxo 29 mg iron- 1 mg-25 mg tablet 19 (with docusate) 29 mg iron-1 mg-25 mg tablet Take 1 tablet by oral route. 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 8 Overview (08/04/2020): MZ phenotype [...] Immunization Administration Dates Next Due Tdap 11/11/2008 Social History Tobacco Use Types Packs/Day Years Used Date Smoking Tobacco: Never Smokeless Tobacco: Never Alcohol Use Standard Drinks/Week Comments Yes 0 (1 standard drink = 0.6 oz pur e alcohol) Comments No Sex and Gender Information Value Date Recorded Sex Assigned at Not on file Legal Sex Female 7:39 AM MOLDED RUBBER GOODS CUTTER Gender Identity Female 10/02/2018 1:03 PM CDT Sexual Orientation Not on file Last Filed [...] 07/12/2021 4:55 PM CDT Plan of Treatment Not on file [place] [place] [employer] [place] [employer] [place] ACCESS [place]OS Care Teams Tank Setter Relationship Specialty Start Date End Date Kristy Hauser MD PCP - General Family Medicine 10/02/18
== END 2024-06-16 17:52 | disposition home or self-care (01) ==
PROVIDERS: Emergency Provider Nurse Practitioner Family; PCP Nurse Practitioner Family
DX: U07.1 COVID-19 (principal); J45.909 Unspecified asthma, uncomplicated; K76.0 Fatty (change of) liver, not elsewhere classified; F41.9 Anxiety disorder, unspecified; F32.A Depression, unspecified
CPT/HCPCS: 87426; 87804; 99213; G0463

== ENCOUNTER 2024-08-25 14:44 | Outpatient (CLI) | payer BC, SELFPAY ==
--- NOTE | ~2024-08-25 | US_ITS ---
Pelvic ultrasound. Clinical History: Abnormal uterine bleeding Technique: Realtime transabdominal and transvaginal scanning of the pelvis was performed. Color flow Doppler and Doppler spectral analysis were performed. Findings: The uterus is anteverted. The endometrial stripe has a thickness of 6 mm. No focal mass is identified. The right ovary measures 2.5 x 1.5 x 1.9 cm. No significant right ovarian or adnexal mass is seen. The left ovary measures 2.8 x 1.3 x 1.4 cm. No significant left ovarian or adnexal mass is seen. There is no evidence of free fluid in the cul de sac. Impression: Unremarkable pelvic ultrasound. Reviewed, dictated and finalized at location . Impression: Unremarkable pelvic ultrasound.
== END 2024-08-25 14:45 | disposition home or self-care (01) ==
LOC: MICIMG 14:45
PROVIDERS: PCP Nurse Practitioner Family; Visit Provider Obstetrics & Gynecology
DX: N93.9 Abnormal uterine and vaginal bleeding, unspecified (principal)
CPT/HCPCS: 76830; 76856

== ENCOUNTER 2024-11-08 09:01 | Outpatient (CLI) | payer BC, SELFPAY ==
--- NOTE | ~2024-11-08 | MM_ITS ---
EXAMINATION: MM screening candida BI w yvonne HISTORY: Screening TECHNIQUE: Craniocaudal and mediolateral oblique 3-D tomosynthesis images were obtained and synthetic 2-D images were generated. CAD analysis was submitted and interpreted. COMPARISON: No prior mammogram is available for comparison at this institution. BREAST PARENCHYMAL COMPOSITION: Dense: The breasts are heterogeneously dense, which may obscure small masses FINDINGS: There is no mammographic evidence for malignancy in the right breast. There are focal asymm etries centered in the upper central aspect of the left breast, middle third which are obscured by fi broglandular tissue. IMPRESSION: 1. Left breast asymmetries upper central breast at approximately 12:00 position, middle third. 2. Additional mammographic views and possible breast ultrasound are recommended. BI-RADS Category 0: Incomplete: Needs additional imaging evaluation. Reviewed, dictated and finalized at location B. IMPRESSION: 1. Left breast asymmetries upper central breast at approximately 12:00 position , middle third. 2. Additional mammographic views and possible breast ultrasound are recommended . BI-RADS Category 0: Incomplete: Needs additional imaging evaluation.
== END 2024-11-08 09:02 | disposition home or self-care (01) ==
LOC: MICIMG 09:02
PROVIDERS: PCP Nurse Practitioner Family; Visit Provider Obstetrics & Gynecology
DX: Z12.31 Encounter for screening mammogram for malignant neoplasm of breast (principal); R92.8 Other abnormal and inconclusive findings on diagnostic imaging of breast
CPT/HCPCS: 77063; 77067

== ENCOUNTER 2024-11-28 09:16 | Outpatient (CLI) | payer BC, SELFPAY ==
--- NOTE | ~2024-11-28 | MMUS_ITS ---
EXAMINATION: MM diagnostic candida LT w yvonne, US breast LT complete HISTORY: Follow-up left breast asymmetries TECHNIQUE: Additional 3-D tomosynthesis images of the left breast were performed and synthetic 2-D im ages were generated. CAD analysis was submitted and interpreted. High resolution complete left breast ultrasound was performed. COMPARISON: 11/08/2024 BREAST PARENCHYMAL COMPOSITION: Dense: The breasts are heterogeneously dense, which may obscure small masses FINDINGS: MAMMOGRAPHIC FINDINGS: There are no suspicious masses, calcifications or architectural distortion in the left breast to sugg est malignancy. ULTRASOUND: Complete US of all 4 quadrants of the left breast/s and retroareolar region was reviewed. At 12:00, 2 cm from the nipple there is an intramammary lymph node measuring 5 mm. No suspicious masses to sugge st malignancy. IMPRESSION: 1. No evidence for malignancy in the left breast. 2. Routine yearly screening mammogram and regular clinical breast examination are recommended. BI-RADS Category 2: Benign finding(s). Reviewed, dictated and finalized at location [] IMPRESSION: 1. No evidence for malignancy in the left breast. 2. Routine yearly screening mammogram and regular clinical breast examination a re recommended. BI-RADS Category 2: Benign finding(s).
== END 2024-11-28 09:17 | disposition home or self-care (01) ==
PROVIDERS: PCP Obstetrics & Gynecology; Visit Provider Obstetrics & Gynecology
DX: R92.8 Other abnormal and inconclusive findings on diagnostic imaging of breast (principal)
CPT/HCPCS: 76641; 77061; 77065; G0279